=== PATIENT | male | born 1960 | race Caucasian/White ===

== ENCOUNTER 2021-01-09 07:44 | Outpatient (RCR) | payer BC, SELFPAY ==
[2016-01-21 16:52] VITALS: BMI 25.2
[2021-01-09] MEDS: COVID-19 VACC, MRNA(PFIZER)/PF 30 MCG/0.3 ML SYRINGE IM (16:46)
[2021-01-30] MEDS: COVID-19 VACC, MRNA(PFIZER)/PF 30 MCG/0.3 ML SYRINGE IM (16:23)
== END 2021-01-09 23:59 ==
LOC: IMMUN 07:44
PROVIDERS: PCP Family Medicine; Visit Provider Family Medicine
DX: Z23 Encounter for immunization (principal)
CPT/HCPCS: 0001A; 0002A; 91300

== ENCOUNTER 2021-11-28 19:05 | Inpatient (IN) | payer BC, SELFPAY ==
--- NOTE | 2021-11-28 19:09 | EKG12_ITS ---
Test Reason : CP Blood Pressure : / mmHG Vent. Rate : 060 BPM Atrial Rate : 060 BPM P-R Int : 200 ms QRS Dur : 160 ms QT Int : 446 ms P-R-T Axes : 078 -61 028 degrees QTc Int : 446 ms Normal sinus rhythm Right bundle branch block Left anterior fascicular block Bifascicular block Septal infarct , age undetermined Abnormal ECG Confirmed by IRIS CULLEN, MAKAYLA ([id number]), features editor WALT LYLES ([id number]) on 11/30/2021 11:03:50 AM Referred By: MAX Confirmed By:MAKAYLA SIMMONS MD
[2021-11-28 21:59] LABS: D-Dimer Quantitative (DVT/PE) 0.75 FEU/ug/m (0.27-0.49)
--- NOTE | 2021-11-28 22:12 | RAD_ITS ---
STUDY: X-RAY CHEST REASON FOR EXAM: Male, 61 years old. Shortness of breath, chest pain TECHNIQUE: AP portable view of the chest on 2 images. COMPARISON: None. FINDINGS: The lungs are deeply expanded, and there are biapical emphysematous changes with mild basilar crowding, more prominent on the right. Punctate calcified granuloma seen in the lateral right upper lobe; trace curvilinear scarring also seen in the inferior right base. [place] shaped density of trace atelectasis or scarring also seen in the medial left costophrenic sulcus No pneumonic infiltrate. There is no demonstrated pleural abnormality. Normal size heart. Sternal cerclage wires and vascular clips are present from a prior sternotomy and coronary artery bypass graft procedure (CABG). Normal mediastinum and simona. Normal visualized pulmonary arteries. Normal visualized aortic arch and descending thoracic aorta. Normal visualized thoracic spine. Normal visualized ribs, clavicles, and shoulders. [place] soft tissue density with superimposed, mildly eccentric gas lucency overlapping the lower thoracic spine and cardiac silhouette suggests a small to moderate-sized hiatal hernia. RAD/Chest 1 View (Portable) IMPRESSION: 1. Emphysematous changes in the apices, and trace parenchymal scarring in the lung lawrence, as noted. No infiltrate to suggest active pneumonia. 2. Prior median sternotomy and CABG. Heart size and pulmonary vascular pattern within normal limits. 3. Small to moderate size hiatal hernia suggested. Electronically Signed: Michele Rush MD at 21:17 EST ,
--- NOTE | 2021-11-28 22:28 | CT_ITS ---
STUDY: CTA CHEST/THORAX REASON FOR EXAM: Male, 61 years old. ELEVATED D DIMER RADIATION DOSAGE (If Supplied By Facility): CTDIvol = ( 12.46 ) mGy, DLP = ( 469.70 ) mGycm TECHNIQUE: The examination was performed with the intravenous administration of IV 100mL [id number]-370. Post-processing of the angiographic images was performed, with multiplanar reformation and 3D reconstruction. Individualized dose optimization techniques were used for this CT. COMPARISON: AP portable chest x-ray on 2 films 3 hours. FINDINGS: Normal enhancement of the main pulmonary artery and right and left pulmonary arteries. Normal enhancement of the bilateral peripheral pulmonary arteries. There is no demonstrated pulmonary embolism. There are several focal calcifications at the root of the aorta. There is mild atherosclerotic calcification of the aortic arch and descending thoracic aorta. There is no demonstrated aortic dissection. Normal heart size and pericardium. There are calcifications of the coronary arteries. Sternal cerclage wires and vascular clips are present from a prior sternotomy and coronary artery bypass graft procedure (CABG). There are several upper normal size lymph nodes in the aorticopulmonary window and lower mediastinum. There are calcified lymph nodes inferior to the right mainstem bronchus. Normal visualized trachea and bronchi. The lungs are hyper expanded, with flattening of the hemidiaphragms. There are centrilobular and panlobular emphysematous changes in both lung lawrence, most prominent in the apices and inferolateral periphery of the lung bases. There are occasional calcified granulomata in both lungs. Minor curvilinear scarring seen in the anterior lung bases Normal pleura. The thyroid gland is enlarged, extending posteriorly on either side where it abuts the margins of the esophagus that is just left of midline. The lower poles of each lobe and also extend inferiorly to the upper level of the manubrium. There are multilevel mild degenerative changes of thoracic spine. There is central depression of the superior L1 vertebral endplate, likely chronic. There is severe osteoarthritic degenerative narrowing of the right glenohumeral joint space. Incidental note of a moderate size hiatal hernia CT/CTA Chest W/WO Contrast IMPRESSION: 1. No demonstrated pulmonary embolism or arterial dissection. 2. The lungs are hyperinflated with bilateral emphysematous changes. Minor curvilinear scarring in the anterior lung bases. 3. Findings of old calcified granulomatous disease also present. 4. Atherosclerotic vascular calcifications noted. Patient has undergone prior median sternotomy and CABG. Heart size within normal limits. 5. Moderate size hiatal hernia. 6. Enlarged thyroid gland. 7. Mild degenerative changes of the thoracic spine. There is central depression of the superior L1 vertebral endplate, likely chronic. 8. 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 Electronically Signed: Michele Rush MD at 23:25 EST ,
--- NOTE | 2021-11-28 23:05 | EDS_ITS ---
DATE OF SERVICE 11/28/21 CHIEF COMPLAINT: Chest pain. HISTORY OF PRESENT ILLNESS: This patient is a 61-year-old male who presents with chest pain that began today. The patient states that it gradually got worse throughout the day today. The patient states that the pain is constant. The patient states that it is aching. The patient states that it is over his right upper chest. The patient states that nothing makes it worse and nothing makes it better. The patient admits to some shortness of breath that has been getting worse since yesterday. The patient admits to some diaphoresis. The patient also admits to a mild cough. The patient states that he is coughing up some yellow sputum. The patient denies any fever or chills. The patient admits to some mild lightheadedness. The patient denies any heartburn or reflux. The patient denies any palpitations. The patient denies any other cardiac risk factors. The patient denies any recent travel or recent surgery. The patient denies any history of DVT or PE. PAST MEDICAL HISTORY: Prostate cancer. PAST SURGICAL HISTORY: Aortic valve repair and aortic aneurysm repair and herniorrhaphy. FAMILY HISTORY: Denies family history of coronary artery disease. SOCIAL HISTORY: The patient is a smoker of 1 pack of cigarettes per day. The patient denies any alcohol or drug use. REVIEW OF SYSTEMS: GENERAL: The patient denies any fevers or chills. EYES: The patient denies blurry vision or diplopia. ENT: The patient admits to some mild rhinorrhea, but denies any sore throat. CARDIOVASCULAR: The patient admits to some chest pain but denies palpitations. RESPIRATORY: The patient admits to shortness of breath and cough. GI: The patient denies any nausea or vomiting. : The patient denies dysuria or hematuria. MUSCULOSKELETAL: The patient denies any neck pain or back pain. SKIN: The patient denies any rash or boils. NEUROLOGIC: The patient denies any weakness. ALLERGIES: The patient denies hives or swelling. PHYSICAL EXAMINATION: GENERAL: The patient is in no acute distress. VITAL SIGNS: Stable, except for an elevated blood pressure of 187/122. The patient is afebrile. HEENT: Oral mucosa is pink and moist. NECK: Supple. Trachea is midline. There is no JVD. LUNGS: Clear and equal bilaterally. HEART: Regular rate and rhythm. ABDOMEN: Soft, bowel sounds are normal. There is no tenderness. There is no rebound or guarding noted. EXTREMITIES: Intact. There is no calf tenderness or edema. NEUROLOGIC: Cranial nerves II-XII are intact. There are no focal motor or sensory deficits. DIAGNOSTIC DATA: EKG shows normal sinus rhythm with rate of 60. There is a right bundle branch block and a left anterior fascicular block noted. There are no acute ST or T-wave changes. CBC was obtained and was within normal limits. D-dimer was elevated at 0.75. Comprehensive metabolic profile was obtained and was essentially within normal limits. Troponin was ordered and was pending. Repeat 2-hour troponin was ordered and is pending. Portable chest x-ray was obtained, one view, which shows emphysematous changes in the apices. There are other chronic changes. There is no acute infiltrate noted. There is no pneumothorax. Bony thorax is normal. There is no cardiomegaly. Radiology also interpreted the signs and agrees. EMERGENCY DEPARTMENT COURSE AND MEDICAL DECISION MAKING: The patient was given aspirin and sublingual nitroglycerin here. The patient is feeling better on reevaluation. IMPRESSION: Dyspnea. Chest pain. DISPOSITION/PLAN: Because of the elevated D-dimer CTA was ordered and is pending. The patient has a HEART score so far as 4. The patient will likely need to be admitted for further cardiac workup. Disposition is pending. Care of the patient is turned over to the oncoming physician.
[2021-11-28 23:27] LABS: ALB/GLOB Ratio 0.7 RATIO (0.9-2.4); AST(SGOT) 20 U/L (15-37); Alanine Aminotransfer ALT/SGPT 22 U/L (16-61); Albumin, Serum 2.8 g/dL (3.2-5.0); Alkaline Phosphatase 96 U/L (45-117); Anion Gap 3 (5-15); BUN 22 mg/dL (7-18); BUN/Creat Ratio 30.6 RATIO (10-20); Calcium,Total 8.8 mg/dL (8.5-10.1); Chloride 111 mmol/L (98-107); Creatinine, Serum 0.72 mg/dL (0.70-1.30); EST Glomerular Filtration Rate 118 mL/min (>60); Est Glom Filt Rate - Afr Amer 142 mL/min (>60); Globulin 3.8 g/dL (2.2-4.2); Glucose 106 mg/dL (74-106); Potassium 3.9 mmol/L (3.5-5.1); Protein, Total 6.6 g/dL (6.4-8.2); Sodium Level 140 mmol/L (136-145); Troponin-I HS 10 pg/mL (3.0-78.0)
--- NOTE | 2021-11-28 23:59 | EDS_ITS ---
DATE OF SERVICE 11/28/21 ADDENDUM: The patient was signed out to me by Dr. Butt while awaiting the troponin and CTA results. The patient's initial troponin was 10. His Delta was 11. His CTA showed chronic changes consistent with postoperative CABG as well as emphysematous/COPD changes, but otherwise no acute findings. I reevaluated the patient and he is resting comfortably on a couple liters of nasal cannula oxygen. When he is ambulated, his respiratory rate goes from 20 to 35. He did not desaturate when I had him ambulate, but reported that just prior to this, his pulse ox went down to 70% when he stood up to use the urinal. At this time, as the patient is requiring supplemental oxygen, and is having dyspnea with minimal exertion, he will be kept in the hospital for COPD exacerbation for continued evaluation. IMPRESSION: Chronic obstructive pulmonary disease exacerbation. DISPOSITION/PLAN: Admission.
[2021-11-29] VITALS (16 sets, daily range): BP systolic 118–165; BP diastolic 74–94; PULSE 56–87; RESP 18–22; TEMP 36.5–36.7; O2SAT 92–98; BMI 23.5
--- NOTE | 2021-11-29 01:11 | HP.PCM_ITS ---
Documented by User: ESTEFANY Newman 11/29/21 01:32 HPI - General General Date of Admission: 11/29/21 Date of Service: 11/29/21 Chief Complaint: Shortness of breath, cough HPI Narrative ROBBY BENNETT, is a 61 M who presents with complaints of shortness of breath and cough. Patient reports that he has been ill with a cough and shortness of breath for 3 weeks and has been on antibiotics and steroids as an outpatient however patient continues to have shortness of breath and cough. Patient was noted to have an elevated D-dimer upon evaluation in ER however CTA is negative for PE. Patient reports a medical history that includes COPD, hypertension, hyperlipidemia. PFSH Medical History CAD (coronary artery disease) COPD (chronic obstructive pulmonary disease) History of prostate cancer HLD (hyperlipidemia) HTN (hypertension) Thoracic aortic aneurysm Tobacco use Home Medications albuterol sulfate 2 puff INHALATION Q4H PRN PRN 11/29/21 [History Last Taken Unknown] aspirin 81 mg PO DAILY 11/29/21 [History Last Taken Unknown] atorvastatin [Lipitor] 20 mg PO QHS 11/29/21 [History Last Taken Unknown] bupropion HCl 150 mg PO BID 11/29/21 [History Last Taken Unknown] carvedilol [Coreg] 3.25 mg PO BID 11/29/21 [History Last Taken Unknown] lisinopril 5 mg PO DAILY 11/29/21 [History Last Taken Unknown] tiotropium bromide [Spiriva with HandiHaler] cap INHALATION DAILY 11/29/21 [History Last Taken Unknown] Allergy/AdvReac Type Severity Reaction Status Date / Time acetaminophen [From Vicodin] AdvReac Other Verified 01/21/16 16:59 hydrocodone bitartrate AdvReac Other Verified 01/21/16 16:59 [From Vicodin] Family History Father Prostate cancer Dementia Mother CHF (congestive heart failure) Diabetes Heart disease Surgical History S/P insertion of endovascular thoracic aortic stent graft S/P prostatectomy Social History household members: spouse Smoking Status: Current every day smoker tobacco type: cigarettes Smoking packs per day: 1 Smoking cigarettes per day: 20.0 Years smoked: 45 Smoking pack-years: 45.00 alcohol intake: current alcohol intake frequency: holidays/special occasions only substance use type: does not use ROS Constitutional Constitutional: Denies anorexia, chills, fatigue, fever(s), malaise or weakness Cardiovascular Cardiovascular: Denies chest pain, edema, palpitations or syncope Respiratory/Chest Respiratory/Chest: Reports cough, productive cough, shortness of breath at rest, shortness of breath with exertion, tachypnea and wheezing Gastrointestinal Gastrointestinal: Denies abdominal pain, constipation, diarrhea, nausea or vomiting Genitourinary Genitourinary: Denies dysuria Musculoskeletal Musculoskeletal: Denies back pain, extremity pain, joint pain or joint stiffness Integumentary Integumentary: Denies dry skin Neurologic Neurologic: Denies abnormal gait, abnormal speech, confusion or dizziness Psychiatric Psychiatric: Denies anxiety or depression Endocrine Endocrinology: Denies change in body appearance Hematologic/Lymphatic Hematologic/Lymphatic: Denies anemia Physical Exam Const alert, oriented x3 and no apparent distress General Appearance: cooperative HEENT normocephalic and head/scalp atraumatic Eyes conjunctivae normal and no scleral icterus Neck no lymphadenopathy and supple General: trachea midline Resp normal respiratory effort and normal air movement Effort and Inspection: able to speak in complete sentences, symmetric chest movement and tachypneic Auscultation: diminished lung sounds Cardio regular rate, regular rhythm and peripheral pulses 2+ throughout GI normal to inspection, nondistended, normoactive bowel sounds, soft to palpation and non-tender Extremity normal capillary refill and no clubbing, cyanosis or edema General Extremity: no tenderness to palpation of joints or extremities Skin General Skin Exam: no breakdown and turgor normal Lesions: no lesions Rashes: no rashes Neuro no focal motor deficits and no sensory deficits noted Speech: speech normal Motor Exam: Negative for general weakness Psych thought process normal, cooperative and affect normal Appearance: appropriate Results Lab / Micro Data Result Diagrams: 11/28/21 19:15 11/28/21 21:00 Labs: Laboratory Results - last 24 hr 11/28/21 19:15: Sodium Cancelled, Potassium Cancelled, Chloride Cancelled, Carbon Dioxide Cancelled, Anion Gap Cancelled, BUN Cancelled, Creatinine Cancelled, Estim Creat Clear Calc Cancelled, Est GFR (MDRD) Af Amer Cancelled, Est GFR (MDRD) Non-Af Cancelled, BUN/Creatinine Ratio Cancelled, Glucose Cancelled, Calcium Cancelled, Total Bilirubin Cancelled, AST Cancelled, ALT Cancelled, Alkaline Phosphatase Cancelled, Troponin I High Sens Cancelled, Total Protein Cancelled, Albumin Cancelled, Globulin Cancelled, Albumin/Globulin Ratio Cancelled 11/28/21 19:15: D-Dimer Quant (PE/DVT) Cancelled 11/28/21 21:00: D-Dimer Quant (PE/DVT) 0.75 H* 11/28/21 21:00: Sodium 140, Potassium 3.9, Chloride 111 H, Carbon Dioxide 26.0, Anion Gap 3 L, BUN 22 H, Creatinine 0.72, Est GFR (MDRD) Af Amer 142, Est GFR ( MDRD) Non-Af 118, BUN/Creatinine Ratio 30.6 H, Glucose 106, Calcium 8.8, Total Bilirubin 0.10 L, AST 20, ALT 22, Alkaline Phosphatase 96, Troponin I High Sens 10, Total Protein 6.6, Albumin 2.8 L, Globulin 3.8, Albumin/Globulin Ratio 0.7 L Radiology Impression Chest X-Ray 11/28/21 22:12 IMPRESSION: 1. Emphysematous changes in the apices, and trace parenchymal scarring in the lung lawrence, as noted. No infiltrate to suggest active pneumonia. 2. Prior median sternotomy and CABG. Heart size and pulmonary vascular pattern within normal limits. 3. Small to moderate size hiatal hernia suggested. Electronically Signed: Michele Rush MD at 21:17 EST , Chest CTA 11/28/21 22:28 IMPRESSION: 1. No demonstrated pulmonary embolism or arterial dissection. 2. The lungs are hyperinflated with bilateral emphysematous changes. Minor curvilinear scarring in the anterior lung bases. 3. Findings of old calcified granulomatous disease also present. 4. Atherosclerotic vascular calcifications noted. Patient has undergone prior median sternotomy and CABG. Heart size within normal limits. 5. Moderate size hiatal hernia. 6. Enlarged thyroid gland. 7. Mild degenerative changes of the thoracic spine. There is central depression of the superior L1 vertebral endplate, likely chronic. 8. 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 Electronically Signed: Michele Rush MD at 23:25 EST , Assessment & Plan Assessment/Plan (1) Acute exacerbation of chronic obstructive pulmonary disease (COPD): (2) Elevated d-dimer: PLAN: 1. Acute exacerbation COPD -Admit to PCU -Oxygen therapy per protocol, currently on 2 L -Sputum culture ordered -Encourage incentive spirometry -CBC and CMP ordered daily -COVID-19 rapid antigen ordered, fully vaccinated and history received -Procalcitonin ordered -Scheduled duo nebs with as needed albuterol nebulizer treatments ordered -Patient initiated on IV methylprednisolone -Trend cardiac enzymes secondary to complaints of chest pressure with shortness of breath 2. Elevated D-dimer -CTA negative for PE 3. Hypertension -Continue carvedilol and lisinopril -Vital signs per protocol, currently hypertensive -As needed IV hydralazine ordered -Cardiac diet 4. Hyperlipidemia -Continue atorvastatin 5. Tobacco abuse -Patient currently smokes 1 pack/day -Smoking cessation and lifestyle modification encouraged -Inpatient smoking cessation consult placed DVT prophylaxis-subcu Lovenox This patient was seen by LUCY NewmanC under the supervision of Dr. Duque. 28 minutes spent in clinical coordination of patient's plan of care. Documented by User: Dr. Kori Duque MD 11/29/21 01:33 PFSH Medical History CAD (coronary artery disease) COPD (chronic obstructive pulmonary disease) History of prostate cancer HLD (hyperlipidemia) HTN (hypertension) Thoracic aortic aneurysm Tobacco use Home Medications albuterol sulfate 2 puff INHALATION Q4H PRN PRN 11/29/21 [History Last Taken Unknown] aspirin 81 mg PO DAILY 11/29/21 [History Last Taken Unknown] atorvastatin [Lipitor] 20 mg PO QHS 11/29/21 [History Last Taken Unknown] bupropion HCl 150 mg PO BID 11/29/21 [History Last Taken Unknown] carvedilol [Coreg] 3.25 mg PO BID 11/29/21 [History Last Taken Unknown] lisinopril 5 mg PO DAILY 11/29/21 [History Last Taken Unknown] tiotropium bromide [Spiriva with HandiHaler] cap INHALATION DAILY 11/29/21 [History Last Taken Unknown] Allergy/AdvReac Type Severity Reaction Status Date / Time acetaminophen [From Vicodin] AdvReac Other Verified 01/21/16 16:59 hydrocodone bitartrate AdvReac Other Verified 01/21/16 16:59 [From Vicodin] Family History Father Prostate cancer Dementia Mother CHF (congestive heart failure) Diabetes Heart disease Surgical History S/P insertion of endovascular thoracic aortic stent graft S/P prostatectomy Social History household members: spouse Smoking Status: Current every day smoker tobacco type: cigarettes Smoking packs per day: 1 Smoking cigarettes per day: 20.0 Years smoked: 45 Smoking pack-years: 45.00 alcohol intake: current alcohol intake frequency: holidays/special occasions only substance use type: does not use Results Lab / Micro Data Result Diagrams: 11/28/21 19:15 11/28/21 21:00
[2021-11-29] MEDS: hydrALAZINE 20 MG/ML Vial 10 MG IV (02:29)
[2021-11-29 03:16] LABS: Absolute Lymphocyte Count 0.83 X10^3/uL (0.83-4.51); Absolute Neutrophil Count 10.5 X10^3/uL (2.0-7.7); Basophil% 0.8 % (0-1); Eosinophil# 0.46 X10^3/uL; Eosinophils% 3.8 % (0-5); Hematocrit 37.1 % (40-54); Hemoglobin 11.9 g/dL (13.0-16.5); Lymphocyte # 0.83 X10^3/ul (0.83-4.51); Lymphocyte % 6.9 % (19-41); Mean Corp Hgb Conc 32.1 g/dL (32-36); Mean Corpuscular Hgb 26.2 pg (27.0-32.0); Mean Corpuscular Volume 81.7 fL (80-94); Mean Platelet Vol. 9.1 fl (6.2-12.0); Monocyte# 0.22 X10^3/uL; Monocyte% 1.8 % (0-10); NRBC Flagged by Analyzer 0 % (0-5); Neutrophil # 10.45 X10^3/uL (2.7-7.7); Neutrophil % 86.5 % (47-70); Platelet Count 392 K/mm3 (150-450); RBC Distribution Width CV 18.2 % (11.6-14.6); RBC Distribution Width SD 54.4 fl (35.1-43.9); Red Blood Count 4.54 M/mm3 (4.6-6.2); White Blood Count 12.1 K/mm3 (4.4-11.0)
[2021-11-29 03:53] LABS: ALB/GLOB Ratio 0.8 RATIO (0.9-2.4); AST(SGOT) 16 U/L (15-37); Alanine Aminotransfer ALT/SGPT 21 U/L (16-61); Albumin, Serum 3.1 g/dL (3.2-5.0); Alkaline Phosphatase 90 U/L (45-117); Anion Gap 6 (5-15); BUN 22 mg/dL (7-18); BUN/Creat Ratio 31.3 RATIO (10-20); Calcium,Total 8.9 mg/dL (8.5-10.1); Chloride 110 mmol/L (98-107); EST Glomerular Filtration Rate 120 mL/min (>60); Est Glom Filt Rate - Afr Amer 146 mL/min (>60); Estimated Creatinine Clearance 125.58 ml/min; Globulin 3.8 g/dL (2.2-4.2); Glucose 114 mg/dL (74-106); Protein, Total 6.9 g/dL (6.4-8.2); Sodium Level 139 mmol/L (136-145); Troponin-I HS 7 pg/mL (3.0-78.0)
[2021-11-29 05:30] LABS: Procalcitonin < 0.04 ng/mL (0.00-0.09)
[2021-11-29] MEDS: 0.9% Saline Lock 10 ML Syringe IV ×3 (06:10→21:23)
[2021-11-29] MEDS: Ipratropium/Albuterol Sulfate 3 ML AMPUL.NEB INHALATION ×4 (07:10→19:59)
--- NOTE | 2021-11-29 07:36 | CPS ---
started by nursing
[2021-11-29] MEDS: Lisinopril 5 MG Tablet PO (08:34)
[2021-11-29] MEDS: Carvedilol 3.125 MG TABLET PO ×2 (08:34→21:22)
[2021-11-29] MEDS: Enoxaparin 40 MG/0.4 ML Syringe SC (08:34)
[2021-11-29] MEDS: Aspirin 81 MG TAB.CHEW PO (08:35)
[2021-11-29 08:45] LABS: Absolute Lymphocyte Count 2.19 X10^3/uL (0.83-4.51); Absolute Neutrophil Count 6.6 X10^3/uL (2.0-7.7); Basophil# 0.14 X10^3/uL; Basophil% 1.3 % (0-1); Eosinophil# 0.95 X10^3/uL; Eosinophils% 8.8 % (0-5); Lymphocyte # 2.19 X10^3/ul (0.83-4.51); Lymphocyte % 20.4 % (19-41); Mean Corp Hgb Conc 31.7 g/dL (32-36); Mean Corpuscular Hgb 26.2 pg (27.0-32.0); Mean Corpuscular Volume 82.5 fL (80-94); Mean Platelet Vol. 9.9 fl (6.2-12.0); Monocyte# 0.85 X10^3/uL; Monocyte% 7.9 % (0-10); NRBC Flagged by Analyzer 0 % (0-5); Neutrophil # 6.58 X10^3/uL (2.7-7.7); Neutrophil % 61.3 % (47-70); Platelet Count 475 K/mm3 (150-450); RBC Distribution Width CV 18.5 % (11.6-14.6); RBC Distribution Width SD 54.9 fl (35.1-43.9); Red Blood Count 4.97 M/mm3 (4.6-6.2); White Blood Count 10.7 K/mm3 (4.4-11.0)
[2021-11-29 11:53] LABS: Troponin-I HS 11 pg/mL (3.0-78.0)
--- NOTE | 2021-11-29 13:33 | PN.HOSP_ITS ---
Subjective Subjective Patient seen and examined. He has been managed for acute COPD exacerbation. He feels his breathing is improving. Patient states he still smokes. He denies any nausea, vomiting, fever or chills. Review of systems otherwise negative. Objective Data Objective Data Vital Signs: Vital Signs Temp Pulse Resp BP Pulse Ox 97.9 F 87 21 H 127/74 H 92 11/29/21 08:21 11/29/21 11:33 11/29/21 10:55 11/29/21 08:21 11/29/21 11:33 Oxygen Flow Rate (L/min) 2 Oxygen Delivery Method Nasal Cannula Weight: 183 lb 3.266 oz Body Mass Index (BMI) 23.5 Lab / Micro Data Result Diagrams: 11/29/21 03:00 11/29/21 03:00 Labs: Laboratory Results - last 24 hr 11/28/21 19:15: Sodium Cancelled, Potassium Cancelled, Chloride Cancelled, Carbon Dioxide Cancelled, Anion Gap Cancelled, BUN Cancelled, Creatinine Cancelled, Estim Creat Clear Calc Cancelled, Est GFR (MDRD) Af Amer Cancelled, Est GFR (MDRD) Non-Af Cancelled, BUN/Creatinine Ratio Cancelled, Glucose Cancelled, Calcium Cancelled, Total Bilirubin Cancelled, AST Cancelled, ALT Cancelled, Alkaline Phosphatase Cancelled, Troponin I High Sens Cancelled, Total Protein Cancelled, Albumin Cancelled, Globulin Cancelled, Albumin/Globulin Ratio Cancelled 11/28/21 19:15: WBC 10.7, RBC 4.97, Hgb 13.0, Hct 41.0, MCV 82.5, MCH 26.2 L, MCHC 31.7 L, RDW Std Deviation 54.9 H, RDW Coeff of Diallo 18.5 H, Plt Count 475 H, MPV 9.9, Immature Gran % (Auto) 0.300, Neut % (Auto) 61.3, Lymph % (Auto) 20.4, [place] % (Auto) 7.9, Eos % (Auto) 8.8 H, Baso % (Auto) 1.3 H, Absolute Neuts (auto) 6.6, Absolute Lymphs (auto) 2.19, Nucleated RBC % 0 11/28/21 19:15: D-Dimer Quant (PE/DVT) Cancelled 11/28/21 21:00: D-Dimer Quant (PE/DVT) 0.75 H* 11/28/21 21:00: Sodium 140, Potassium 3.9, Chloride 111 H, Carbon Dioxide 26.0, Anion Gap 3 L, BUN 22 H, Creatinine 0.72, Est GFR (MDRD) Af Amer 142, Est GFR (MDRD) Non-Af 118, BUN/Creatinine Ratio 30.6 H, Glucose 106, Calcium 8.8, Total Bilirubin 0.10 L, AST 20, ALT 22, Alkaline Phosphatase 96, Troponin I High Sens 10, Total Protein 6.6, Albumin 2.8 L, Globulin 3.8, Albumin/Globulin Ratio 0.7 L 11/28/21 23:00: Troponin I High Sens 11 11/29/21 03:00: Procalcitonin < 0.04 11/29/21 03:00: WBC 12.1 H, RBC 4.54 L, Hgb 11.9 L, Hct 37.1 L, MCV 81.7, MCH 26.2 L, MCHC 32.1, RDW Std Deviation 54.4 H, RDW Coeff of Diallo 18.2 H, Plt Count 392, MPV 9.1, Immature Gran % (Auto) 0.200, Neut % (Auto) 86.5 H, Lymph % (Auto) 6.9 L, [place] % (Auto) 1.8, Eos % (Auto) 3.8, Baso % (Auto) 0.8, Absolute Neuts (auto) 10.5 H, Absolute Lymphs (auto) 0.83, Nucleated RBC % 0 11/29/21 03:00: Sodium 139, Potassium 4.0, Chloride 110 H, Carbon Dioxide 23.0, Anion Gap 6, BUN 22 H, Creatinine 0.70, Estim Creat Clear Calc 125.58, Est GFR (MDRD) Af Amer 146, Est GFR (MDRD) Non-Af 120, BUN/Creatinine Ratio 31.3 H, Glucose 114 H, Calcium 8.9, Total Bilirubin 0.20, AST 16, ALT 21, Alkaline Phosp hatase 90, Troponin I High Sens 7, Total Protein 6.9, Albumin 3.1 L, Globulin 3.8, Albumin/Globulin Ratio 0.8 L Micro: Microbiology 11/29/21 02:15 Nasal Secretion SARS-CoV-2 Antigen (Rapid) - Final Radiography Diagnostic Testing: Radiology Impression Chest X-Ray 11/28/21 22:12 IMPRESSION: 1. Emphysematous changes in the apices, and trace parenchymal scarring in the lung lawrence, as noted. No infiltrate to suggest active pneumonia. 2. Prior median sternotomy and CABG. Heart size and pulmonary vascular pattern within normal limits. 3. Small to moderate size hiatal hernia suggested. Electronically Signed: Michele Rush MD at 21:17 EST , Chest CTA 11/28/21 22:28 IMPRESSION: 1. No demonstrated pulmonary embolism or arterial dissection. 2. The lungs are hyperinflated with bilateral emphysematous changes. Minor curvilinear scarring in the anterior lung bases. 3. Findings of old calcified granulomatous disease also present. 4. Atherosclerotic vascular calcifications noted. Patient has undergone prior median sternotomy and CABG. Heart size within normal limits. 5. Moderate size hiatal hernia. 6. Enlarged thyroid gland. 7. Mild degenerative changes of the thoracic spine. There is central depression of the superior L1 vertebral endplate, likely chronic. 8. 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 Electronically Signed: Michele Rush MD at 23:25 EST , Physical Exam Const alert, oriented x3 and no apparent distress Exam Limitations: no limitations HEENT head/scalp atraumatic Head and Scalp: normocephalic Mouth: dry mucous membranes Eyes EOMs intact bilaterally and conjunctivae normal Neck no lymphadenopathy Resp Resp Narrative: Mildly diminished breath sounds bibasilarly. No wheezes or crackles. On 2 L of oxygen. Cardio regular rate, regular rhythm, S1 normal heart sound, S2 normal heart sound and no murmurs GI normal to inspection, nondistended, normoactive bowel sounds, soft to palpation, non-tender and non-distended Extremity normal to inspection, full ROM and no clubbing, cyanosis or edema Peripheral Pulses: Yes pulses 2+ throughout Skin no rashes or lesions noted Neuro oriented x3, CN's II-XII intact bilaterally, moves all extremities and no focal motor deficits Sensorium / Orientation: awake and alert Psych affect normal Assessment & Plan Assessment/Plan (1) Acute exacerbation of chronic obstructive pulmonary disease (COPD): (2) Elevated d-dimer: PLAN: #Acute COPD exacerbation * Currently on 2 L of oxygen. On IV Solu-Medrol. * Breathing treatments with bronchodilators. Titrate oxygen to maintain saturation above 90%. * counseled to quit smoking * #Elevated D-dimer: D-dimer was 0.75. CTA of the chest done was negative for any evidence of PE #CAD: On aspirin, statin, Coreg and lisinopril #History of aortic aneurysm status post recent grafting on 03/19/2021. * On aspirin and statin as well as Coreg lisinopril #Hypertension: On lisinopril and Coreg #Anemia: On statin #Thyromegaly: This was a seen on CT a of the chest rule out PE. Will check thyroid function panel #Nicotine dependence: still smokes about a pack a day. counseled to quit. DVT prophylaxis: Lovenox Charges/Coding Visit Charges Inpatient E&M: 04022 Subs Hosp L2
--- NOTE | 2021-11-29 13:59 | CASEMGMT ---
RN CM Assessment Introduced role of RN CM to patient and Jacqui at bedside. Patient is alert, oriented and able to participate in RN CM Assessment. Care providers, pharmacy, and demographics verified. Admit Dx: COPD Exacerbation Re-Admit: No Barriers/Issues: None PCP: Chad Hennessy Specialists: Cardio Preferred [facility]acy: [facility] Insurance: Drain Rx Benefit: Yes LNOK: Jacqui Roberts LW/HPOA: None. Information with SW rack card provided and aware to notify staff if wanting to complete on this admission. Aware can return as an outpatient to complete at a later time. Living Arrangements: Lives with in a 2SH. Bedroom on [facility] w/approx 12-15steps. 3 steps to enter home. ADL?s: Independent with ambulation and ADLs Transportation: Both patient and drive DME: None HHC: None SNF: None Goal: Home and does not think will have any needs. In network DME list provided and should Home O2 be required, 1st preference [employer] and 2nd preference [employer]. DC PLAN: Home with possible Home O2. Mitul Patel RNCM
[2021-11-29 18:49] LABS: T4 Free Direct 0.73 ng/dL (0.76-1.46)
[2021-11-29] MEDS: Atorvastatin Calcium 20 MG Tablet PO (21:22)
[2021-11-29] MEDS: MELATONIN 3 MG TABLET PO (21:22)
[2021-11-30] VITALS (9 sets, daily range): BP systolic 129–154; BP diastolic 87–94; PULSE 56–79; RESP 16–18; TEMP 36.5–36.8; O2SAT 87–98
[2021-11-30] MEDS: Mag Hydrox/Al Hydrox/Simeth 30 ML UDC PO (02:27)
[2021-11-30] MEDS: 0.9% Saline Lock 10 ML Syringe IV (05:37)
--- NOTE | 2021-11-30 05:55 | US_ITS ---
STUDY: THYROID ULTRASOUND REASON FOR EXAM: Male, 61 years old. Thyromegaly seen on 11/28/21 CT TECHNIQUE: Ultrasound evaluation of the thyroid was performed with real-time and static alcala-scale imaging. COMPARISON: Comparison is made with prior CT scan of the thorax dated 11/28/2021. FINDINGS: RIGHT LOBE: The right lobe of the thyroid gland is enlarged and measures 6 cm x 3.6 cm x 4.3 cm. There is a heterogeneous echotexture. Multiple solid nodules are seen. The largest in the right lobe measures 1.8 cm x 1.8 cm x 1.8 cm. A biopsy is recommended. LEFT LOBE: The left lobe of the thyroid gland is enlarged and measures 5.7 cm x 3.4 cm x 2.8 cm. There is a heterogeneous echotexture. 2 solid nodules are seen. The larger measures 1.3 cm x 0.9 cm x 0.6 cm. In 0.4 mm calcification is seen in the left lobe. ISTHMUS: The isthmus measures 11 mm. The regional lymph nodes are normal. US/Thyroid IMPRESSION: Heterogeneous enlargement of both lobes of the thyroid with bilateral solid masses more pronounced on the right side. Biopsy of the 1.8 cm x 1.8 cm x 1.8 cm irregular solid nodule in the right lobe is recommended. Electronically Signed: Dontae Dalton MD at 10:46 EST ,
[2021-11-30 06:26] LABS: Absolute Lymphocyte Count 0.85 X10^3/uL (0.83-4.51); Absolute Neutrophil Count 17.6 X10^3/uL (2.0-7.7); Basophil# 0.02 X10^3/uL; Basophil% 0.1 % (0-1); Hematocrit 35.8 % (40-54); Hemoglobin 11.1 g/dL (13.0-16.5); Lymphocyte # 0.85 X10^3/ul (0.83-4.51); Lymphocyte % 4.4 % (19-41); Mean Corpuscular Hgb 25.7 pg (27.0-32.0); Mean Corpuscular Volume 82.9 fL (80-94); Mean Platelet Vol. 9.3 fl (6.2-12.0); Monocyte# 0.72 X10^3/uL; Monocyte% 3.7 % (0-10); NRBC Flagged by Analyzer 0 % (0-5); Neutrophil # 17.55 X10^3/uL (2.7-7.7); Neutrophil % 91.1 % (47-70); Platelet Count 390 K/mm3 (150-450); RBC Distribution Width CV 18.4 % (11.6-14.6); RBC Distribution Width SD 55.4 fl (35.1-43.9); Red Blood Count 4.32 M/mm3 (4.6-6.2); White Blood Count 19.3 K/mm3 (4.4-11.0)
[2021-11-30 06:39] LABS: Anion Gap 4 (5-15); BUN 26 mg/dL (7-18); BUN/Creat Ratio 32.2 RATIO (10-20); Chloride 109 mmol/L (98-107); Creatinine, Serum 0.81 mg/dL (0.70-1.30); EST Glomerular Filtration Rate 103 mL/min (>60); Est Glom Filt Rate - Afr Amer 124 mL/min (>60); Estimated Creatinine Clearance 108.53 ml/min; Glucose 148 mg/dL (74-106); Potassium 4.4 mmol/L (3.5-5.1); Sodium Level 138 mmol/L (136-145)
[2021-11-30] MEDS: Ipratropium/Albuterol Sulfate 3 ML AMPUL.NEB INHALATION ×2 (07:09→11:01)
[2021-11-30] MEDS: Aspirin 81 MG TAB.CHEW PO (08:20)
[2021-11-30] MEDS: Lisinopril 5 MG Tablet PO (08:20)
[2021-11-30] MEDS: Enoxaparin 40 MG/0.4 ML Syringe SC (08:21)
[2021-11-30] MEDS: Carvedilol 3.125 MG TABLET PO (08:21)
--- NOTE | 2021-11-30 10:15 | CASEMGMT ---
Addendum entered by Shellie King 11/30/21 11:56: Faxed referral for O2 to [facility], email to Evangelina regarding referral and that portable tank was taken from stock. Original Note: JESSICA CM in to pt room, pt sitting on edge of bed. Discussed with pt oxygen process, pt verbalizes understanding. He states he is going to buy a pulse ox when he picks up his rx. Pt denies need for HHC. Pt denies further needs.
--- NOTE | 2021-11-30 10:22 | CASEMGMT ---
Pt screened with [facility] Palliative Care screening tool due to COPD exac, pt met criteria. No order received at this time.
--- NOTE | 2021-11-30 11:38 | PCM.DC.SUM ---
Providers Date of Admission: 11/29/21 Primary Care Physician: Dr. Chad Hennessy MD Reason For Visit: COPD EXACERBATION Diagnosis Discharge Diagnosis (1) Acute exacerbation of chronic obstructive pulmonary disease (COPD): Status: Chronic Code(s): J44.1 - Chronic obstructive pulmonary disease with (acute) exacerbation (2) Elevated d-dimer: Status: Acute Code(s): R79.89 - Other specified abnormal findings of blood chemistry Medications at Discharge Home Medications Spiriva with HandiHaler 18 mcg INHALATION DAILY 11/29/21 albuterol sulfate 2 puff INHALATION Q4H PRN PRN 11/29/21 aspirin 81 mg PO DAILY 11/29/21 atorvastatin [Lipitor] 20 mg PO QHS 11/29/21 carvedilol [Coreg] 3.25 mg PO BID 11/29/21 lisinopril 5 mg PO DAILY 11/29/21 albuterol sulfate 1 inh INHALATION Q6H PRN #6.7 g 11/30/21 levofloxacin 750 mg PO Q24H #7 tab 11/30/21 levothyroxine [Synthroid] 50 mcg PO DAILY #30 tab 11/30/21 nicotine 21 mg TRANSDERMAL DAILY #7 ea 11/30/21 prednisone 10 mg PO DAILY #40 tab 11/30/21 Hospital Course Operations None Procedures None Summary of Care Provided Minutes Spent on Discharge: 36 Hospital Course: Mr. Roberts is a 61-year-old white male who presented to the emergency department was [facility] on 11/28/2021 with a chief complaint of shortness of breath. He reported history of upper respiratory infection that has been problematic for approximately 3 weeks prior to presentation and had been given Augmentin and prednisone therapy as an outpatient. Upon presentation he had more pronounced dyspnea, wheezing, and chest tightness and objectively had an increased work of breathing. The patient did admit on admission over the last 48 hours he had painted several hours a day and had been exposed to chemicals with at which she was not normally exposed. Respirators were not worn. In the emergency department his D-dimer was mildly elevated and therefore a CTA of his chest was performed. He had mild white count elevation on his CBC without marked left shift and his BMP was negative. A high-sensitivity troponin was obtained on admission given his shortness of breath and it was 10 which is well within normal range. His chest x-ray shows previous sternotomy and evidence of CABG with a small to moderate size hiatal hernia and evidence of parenchymal scarring and emphysematous changes at the apices. As noted above a CTA of his chest was performed and showed no evidence of PE or dissection but did show hyperinflated lungs with bilateral emphysematous changes throughout the lung lawrence, worse at the apices, and scarring in the anterior lung bases with old calcified granulomatous disease, atherosclerotic calcifications, a moderate hiatal hernia and an enlarged thyroid gland. He was admitted to the medical floor and treated with IV Solu-Medrol, [id number] duo nebs with as needed albuterol and given the thyroid enlargement on his CTA a thyroid ultrasound was obtained. He had significant improvement in his respiratory status by 11/30/2021 and required no oxygen with ambulation and 2 L with exertion to maintain sats greater than 88%. Upon my discussion with him he is still smoking and had experienced a change in his sputum production prior to presentation and given that he was initiated on oral antibiotics at discharge. He is never followed with a infectious waste technician before. I did discuss that this was recommended at this point given the severity of his lung disease especially with the marked abnormalities noted on CT of his chest. His CT was reviewed with him prior to discharge. Also the ultrasound of his thyroid noted heterogeneous enlargement of both lobes of the thyroid with bilateral solid masses more pronounced on the right and biopsy was recommended of the right lobe. The case was discussed with Dr. Cabral and he states that he can perform this as an outpatient and therefore referral was made at discharge. A TSH was obtained and found to be 26.10 with a free T4 of 0.73. And therefore levothyroxine was ordered at 50 mcg. I would recommend follow-up TSH be performed in 6 weeks. The level was too high to be euthyroid sick. Upon discharge she was given a prescription for levothyroxine as noted above, a prednisone taper, levofloxacin for 7-day course, and nicotine patch at 21 mcg for 7 days, and a refill of his albuterol HFA. He was instructed to follow-up with his PCP as scheduled, which is within the next week, pulmonology as his PCP is able to refer, and Dr. Cabral from general surgery for thyroid biopsy. I would also recommend outpatient PFTs be obtained. Discharge diagnoses: Acute hypoxic respiratory failure Acute COPD exacerbation Elevated TSH Thyroid nodules--> solid needing biopsy D-dimer elevation Leukocytosis secondary to demargination with steroids Normocytic anemia Hypertension CAD Hyperlipidemia Tobacco abuse Physical Exam Const alert, oriented x3 and no apparent distress Constitutional Narrative: Upper middle-aged white male sitting up in bed watching television currently on 2 L nasal cannula with oxygen saturations at 96-97%, appears comfortable and nontoxic General Appearance: cooperative, comfortable, well kempt and well developed Orientation / Consciousness: awake Exam Limitations: no limitations HEENT normocephalic, head/scalp atraumatic, hearing grossly normal bilaterally and moist oral mucous membranes HEENT Narrative: Dentition is fair, Mallampati is 2, no thrush Eyes PERRL, EOMs intact bilaterally and conjunctivae normal Eyes Narrative: No scleral icterus Neck no lymphadenopathy, supple and no JVD Neck Narrative: Trachea midline, no significant thyroid enlargement or nodules able to be palpated Resp normal respiratory effort, no retractions, no use of accessory muscles and clear to auscultation bilaterally Resp Narrative: Markedly diffusely diminished but no adventitious sounds Auscultation: Negative for crackles, rales, rhonchi or wheezes Cardio regular rate, regular rhythm, S1 normal heart sound, S2 normal heart sound, no murmurs, no rub, no gallops, no clicks and no JVD GI normal to inspection, nondistended, normoactive bowel sounds, soft to palpation, non-tender and non-distended Extremity normal to inspection and no clubbing, cyanosis or edema Skin no rashes or lesions noted, no wounds, skin turgor normal and no jaundice Neuro oriented x3, CN's II-XII intact bilaterally, moves all extremities and no focal motor deficits Sensorium / Orientation: awake and alert Speech: speech normal Motor Exam: strength 5/5 throughout Psych affect normal Psych Narrative: Very pleasant Weight / BMI Weight Weight: 83.642 kg Body Mass Index (BMI) 23.5 ABG / Lab / Microbiology Data Result Diagrams: 11/30/21 05:33 11/30/21 05:33 Laboratory: Laboratory Results - last 24 hr 11/28/21 23:00: Troponin I High Sens 11 11/29/21 03:00: TSH 26.10 H 11/29/21 03:00: Free T4 0.73 L 11/30/21 05:33: WBC 19.3 H, RBC 4.32 L, Hgb 11.1 L, Hct 35.8 L, MCV 82.9, MCH 25.7 L, MCHC 31.0 L, RDW Std Deviation 55.4 H, RDW Coeff of Diallo 18.4 H, Plt Count 390, MPV 9.3, Immature Gran % (Auto) 0.700, Neut % (Auto) 91.1 H, Lymph % (Auto) 4.4 L, [place] % (Auto) 3.7, Eos % (Auto) 0.0, Baso % (Auto) 0.1, Absolute Neuts (auto) 17.6 H, Absolute Lymphs (auto) 0.85, Nucleated RBC % 0 11/30/21 05:33: Sodium 138, Potassium 4.4, Chloride 109 H, Carbon Dioxide 25.0, Anion Gap 4 L, BUN 26 H, Creatinine 0.81, Estim Creat Clear Calc 108.53, Est GFR (MDRD) Af Amer 124, Est GFR (MDRD) Non-Af 103, BUN/Creatinine Ratio 32.2 H, Glucose 148 H, Calcium 9.0 Microbiology: Microbiology 11/29/21 02:15 Nasal Secretion SARS-CoV-2 Antigen (Rapid) - Final Radiography Diagnostic Testing: Radiology Impression Thyroid Ultrasound 11/30/21 05:55 IMPRESSION: Heterogeneous enlargement of both lobes of the thyroid with bilateral solid masses more pronounced on the right side. Biopsy of the 1.8 cm x 1.8 cm x 1.8 cm irregular solid nodule in the right lobe is recommended. Electronically Signed: Dontae Dalton MD at 10:46 EST , D/C Instructions Discharge Diet: Low fat / Low cholesterol Discharge Activity: Return to Normal Activity Return to work on: 12/03/21 (If cleared by primary care physician) Meaningful Use Info Meaningful Use Diagnoses (Choose all that apply): None applicable Discharge Plan Admission Admit Date/Time: 11/29/21 00:53 Primary Reason for Your Visit: Shortness of Breath Attending Provider: Namita Roque Primary Care Provider: Chad Hennessy Instructions Additional Instructions / Restrictions: 1. complete course of antibiotics 2. completed steroid taper 3. Pulmonary follow-up 4. quit smoking 5. Thyroid ultrasound shows enlargement with solid bilateral masses right greater than left -Biopsy is recommended--> please see referral to Dr. Cabral below Discharge Orders/Prescriptions Prescriptions: New nicotine 21 mg/24 hr Patch 24 Hour 21 mg transdermal DAILY Qty: 7 RF: 0 prednisone 10 mg tablet 10 mg PO DAILY Qty: 40 RF: 0 levofloxacin 750 mg tablet 750 mg PO Q24H Qty: 7 RF: 0 albuterol sulfate 90 mcg/actuation HFA aerosol inhaler 1 inh inhalation Q6H PRN (Reason: shortness of breath or wheezing) Qty: 6.7 RF: 1 levothyroxine [Synthroid] 50 mcg tablet 50 mcg PO DAILY Qty: 30 RF: 0 Continued atorvastatin [Lipitor] 20 mg tablet 20 mg PO QHS RF: 0 carvedilol [Coreg] 3.125 mg tablet 3.25 mg PO BID RF: 0 albuterol sulfate 90 mcg/actuation HFA aerosol inhaler 2 puff INHALATION Q4H PRN PRN (Reason: Dyspnea, wheezing) RF: 0 lisinopril 5 mg tablet 5 mg PO DAILY RF: 0 Spiriva with HandiHaler 18 mcg capsule, w/inhalation device 18 mcg INHALATION DAILY RF: 0 aspirin 81 mg Tablet 81 mg PO DAILY RF: 0 Referrals / Follow Up: Chad Hennessy MD [Primary Care Provider] - See Referral Note (As scheduled) Herson Cabral MD [STAFF PHYSICIAN] - Within 1 Week (This referral is for biopsy of your thyroid nodules) Clovis Beckford MD [STAFF PHYSICIAN] - See Referral Note (Allow for PCP referral) Disposition Disposition (needs filled in before D/C Order can be placed): Home, Self Care Charges/Coding Visit Charges Inpatient E&M: 38816 Disch Hosp
--- NOTE | 2021-11-30 12:30 | NURSING ---
Patient aware that he needs to follow up with Dr. Cabral for thyroid nodules found on ultrasound and possible biopsy. Office number given, also aware of script sent for Synthroid to his pharmacy.
== END 2021-11-30 12:30 | disposition home or self-care (01) | DRG 190 ==
LOC: ED 11-29 01:42 → MS3 11-29 01:45 → ED 12-01 07:38
PROVIDERS: Student in an Organized Health Care Education/Training Program; Admitting Provider Family Medicine; Emergency Provider Emergency Medicine; PCP Family Medicine; Visit Provider Internal Medicine
DX: J44.1 Chronic obstructive pulmonary disease with (acute) exacerbation (principal); J96.01 Acute respiratory failure with hypoxia; E01.0 Iodine-deficiency related diffuse (endemic) goiter; F17.210 Nicotine dependence, cigarettes, uncomplicated; I10 Essential (primary) hypertension; E78.5 Hyperlipidemia, unspecified; I25.10 Atherosclerotic heart disease of native coronary artery without angina pectoris; D64.9 Anemia, unspecified; Z77.098 Contact with and (suspected) exposure to other hazardous, chiefly nonmedicinal, chemicals; R79.89 Other specified abnormal findings of blood chemistry; Z79.82 Long term (current) use of aspirin; Z95.1 Presence of aortocoronary bypass graft
CPT/HCPCS: 36415; 71045; 71275; 76536; 80048; 80053; 84145; 84439; 84443; 84484; 85025; 85379; 87426; 93005; 94640; 96374; 99251; 99285; 99406; Q9967; A4216; G0463

== ENCOUNTER 2022-01-04 16:56 | Outpatient (CLI) | payer BC, SELFPAY ==
--- NOTE | 2022-01-04 | FLU_PTH ---
PATIENT: ROBBY BENNETT LOC: [facility] U#:[id number] AGE/SX: 61/M ROOM: RE01/04/[address]: Dr. Chadwick Weathers MD : 1960 BED: DIS: 01/04/2022 SPEC #: [id number] RECD: 01/04/22 16:50 STATUS: PANKAJ MARY #: [id number] PÉREZ: 01/04/22 00:[address]: Chadwick Weathers DEPT: CYTOLOGY RECD BY: Alla Carvajal ENTERED: 01/05/22 09:14 SP TYPE: Fluid OTHR DR: Dr. Chad Hennessy MD Tissues: A - Thyroid gland, NOS B - Thyroid gland, NOS Procedures: Special Stain Group II Surgery Specimen Level IV Cytospin Fluid Cytology Other HEADER OPERATION: Fine needle aspiration right thyroid PRE-OP DIAGNOSIS: Right thyroid nodule TISSUE SUBMITTED: A ? FNA, right thyroid fluid, B - FNA, right thyroid x8 slides DIAGNOSIS CYTOLOGY A. Right thyroid nodule fluid, FNA (cytospin and cell block): Rare benign follicular cells noted. B. Right thyroid nodule, FNA (smears): A few clusters of benign follicular cells noted. The specimen is limited in evaluation due to lack of adequate number of follicular cells. See comment. SJ:lynette 01/06/2022 COMMENT Correlation with clinical, radiologic findings and appropriate follow up are necessary. CYTOLOGY STUDY Slides are reviewed. CYTOLOGY GROSS A - Received is 30 ml of light pinkish-brown cloudy fluid labeled with the patient's name and and designated per the requisition as right thyroid. Submitted for cytology preparation including cell block. B - Received are eight smears labeled with the patient's name and designated per the requisition as right thyroid. Submitted for staining. / lynette 01/05/2022 TC: Cannot code CPT: 66438, 92278 x2
== END 2022-01-04 23:59 | disposition home or self-care (01) ==
LOC: LABSPEC 16:58
PROVIDERS: PCP Family Medicine; Referring Provider Surgery; Visit Provider Surgery
DX: E04.1 Nontoxic single thyroid nodule (principal)
CPT/HCPCS: 88108; 88161; 88305; 88313

== ENCOUNTER 2022-04-12 17:22 | Emergency (ER) | payer BC, SELFPAY ==
[2022-04-12 17:22] VITALS: BP 142/91; PULSE 83; RESP 20; TEMP 36.2; O2SAT 95; BMI 24.5
--- NOTE | 2022-04-12 17:51 | EKG12_ITS ---
Test Reason : Blood Pressure : / mmHG Vent. Rate : 068 BPM Atrial Rate : 068 BPM P-R Int : 146 ms QRS Dur : 154 ms QT Int : 440 ms P-R-T Axes : 040 -66 -09 degrees QTc Int : 467 ms Normal sinus rhythm Right bundle branch block Left anterior fascicular block Bifascicular block Abnormal ECG Confirmed by MOO CULLEN, TONY ([id number]), medical transcription editor WALT LYLES ([id number]) on 04/14/2022 9:52:12 AM Referred By: Confirmed By:TONY CORTÉS MD
--- NOTE | 2022-04-12 17:53 | ED.VIS.DYS ---
HPI History of Present Illness Chief Complaint: Shortness of Breath Informant: patient Onset/Context/Timing Onset: Days (5) Timing: Continuous Quality: Positive for Dyspnea on exertion and Wheezing Current Severity: Mild Maximum Severity: Severe Worsened by: Exertion and Coughing Relieved by: Rest and Albuterol (Not helping much today) Associated Symptoms cough and clear sputum Chest Pain: Positive for Tightness Narrative Narrative: Patient has been having a COPD exacerbation for the last 5 days or so. Initially was seen at [facility] urgent care and saw a nurse practitioner that put him on Levaquin 750 mg daily (although according to the patient he had a chest x-ray that showed NO pneumonia), he was put on steroids 40 mg daily, and then a taper. He has taken 2 days worth of the 40 mg, he has been taking 10 mg 4 times per day but regardless he is feeling no better. Today he was checking his pulse ox and he was in the 94-95 range at rest but when he would exert himself a little and get very winded he went down to the high 80s. He is not on home oxygen. No fevers or chills. PFSH PFSH Medical History CAD (coronary artery disease) COPD (chronic obstructive pulmonary disease) History of prostate cancer HLD (hyperlipidemia) HTN (hypertension) Thoracic aortic aneurysm Tobacco use Home Medications albuterol sulfate 2 puff INHALATION Q4H PRN PRN 11/29/21 [History Last Taken 11/28/21 16:00] aspirin 81 mg PO DAILY 11/29/21 [History Last Taken 11/28/21 08:00] atorvastatin [Lipitor] 20 mg PO QHS 11/29/21 [History Last Taken 11/28/21 08:00] carvedilol [Coreg] 3.25 mg PO BID 11/29/21 [History Last Taken 11/28/21 08:00] lisinopril 5 mg PO DAILY 11/29/21 [History Last Taken 11/28/21 08:00] levofloxacin 750 mg PO Q24H #7 tab 11/30/21 [Rx Last Taken Unknown] levothyroxine [Synthroid] 50 mcg PO DAILY #30 tab 11/30/21 [Rx Last Taken Unknown] prednisone 10 mg PO DAILY #40 tab 11/30/21 [Rx Last Taken Unknown] albuterol sulfate [Ventolin HFA] 1 - 2 puff INHALATION Q4H PRN PRN #1 inhaler 04/12/22 [Rx Last Taken Unknown] benzonatate 100 mg PO TID PRN PRN 04/12/22 [History Last Taken Unknown] [id number] [Trelegy Ellipta] 1 inh INHALATION DAILY 04/12/22 [History Last Taken Unknown] prednisone 60 mg PO DAILY 4 Days #12 tablet 04/12/22 [Rx Last Taken Unknown] Allergy/AdvReac Type Severity Reaction Status Date / Time acetaminophen [From Vicodin] AdvReac Other Verified 04/12/22 17:22 hydrocodone bitartrate AdvReac Other Verified 04/12/22 17:22 [From Vicodin] Family History Father Prostate cancer Dementia Mother CHF (congestive heart failure) Diabetes Heart disease Surgical History S/P insertion of endovascular thoracic aortic stent graft S/P prostatectomy Social History household members: spouse Smoking Status: Current every day smoker tobacco type: cigarettes alcohol intake: current alcohol intake frequency: holidays/special occasions only substance use type: does not use ROS ROS ED Constitutional Constitutional ED: Denies chills or fever(s) Eyes Eyes: Denies change in vision or diplopia ENT ENT ED: Denies rhinorrhea or sore throat Cardiovascular Cardiovascular: Reports chest pain; Denies palpitations Respiratory/Chest Respiratory/Chest: Reports cough, dyspnea, dyspnea on exertion and wheezing Gastrointestinal Gastrointestinal: Denies abdominal pain, diarrhea, nausea or vomiting Genitourinary Genitourinary ED: Denies dysuria or hematuria Musculoskeletal Musculoskeletal: Denies back pain or neck pain Integumentary Denies abscess or rash Neurologic Neurologic: Denies headache(s), paresthesias or weakness Psychiatric Psychiatric: Denies anxiety or suicidal thoughts EXAM Physical Exam Const Vital Signs: 04/12/22 17:22 04/12/22 17:42 04/12/22 17:58 Temperature 97.2 F L Temperature Source Temporal Pulse Rate 83 69 Respiratory Rate 20 H 18 Respiratory Effort Short of Breath Respiratory Pattern Tachypnea Normal Blood Pressure 142/91 H Blood Pressure Mean 108 Pulse Ox 95 Oxygen Delivery Method Room Air 04/12/22 18:10 04/12/22 18:19 04/12/22 19:26 Temperature Temperature Source Pulse Rate 74 76 74 Respiratory Rate 18 18 15 Respiratory Effort Respiratory Pattern Normal Normal Blood Pressure 136/90 H Blood Pressure Mean 105 Pulse Ox 93 Oxygen Delivery Method Positive well nourished and well developed General Appearance ED: well developed and NAD HEENT Reports moist mucous membranes normocephalic and atraumatic Eyes PERRL and EOMs intact bilaterally Neck full ROM and supple Resp normal respiratory effort and clear to auscultation bilaterally Resp Narrative: Mildly tachypnea, speaking in 10+ word sentences. Not wheezing, diminished throughout and somewhat tight. Effort and Inspection: prolonged expiratory phase; Negative for pursed lip breathing Cardio regular rate, regular rhythm and no murmurs GI non-tender and non-distended Auscultation: normoactive bowel sounds Palpation: soft Back/Spine no CVA tenderness General Back: other FROM Extremity normal to inspection and no calf tenderness General Extremety ED: Negative for edema, pulses abnormal or tenderness General Extremity: Negative for edema or pulses abnormal Neuro oriented x3, CN's II-XII intact bilaterally and no sensory deficits noted Sensorium / Orientation: awake and alert Motor Exam: strength 5/5 throughout Skin no rashes or lesions noted and no wounds MDM MDM MDM Narrative Medical decision making narrative: Patient was given terbutaline, followed by a round of nebulizer treatments. He did feel improved but still felt tight and wheezy. His oxygenation is good at rest. His 1 view chest x-ray my interpretation shows no pneumonia, radiology in agreement. Cardiac work-up unremarkable. I offered admission he declines and prefers to stay home and take off some work and stay in air conditioning with the high humidity this week. His Levaquin 750 is dosed at pneumonia dosing, not typical COPD/bronchitis dosing, it is overkill but will prevent bacterial superinfection nevertheless as I discussed with him and I would not change it now that he already has it. My plan is to increase his steroids for the next 4 days to 60 mg daily, he can pause a taper during this time and resume it on day 5, I will give him Solu-Medrol 125 here, he is only at 20 mg today because he was taken 10 mg at a time 4 times a day, we discussed what to do with the rest of those extra 2 pills at the end of the taper which hopefully will help him. I think his leukocytosis is related to the prednisone. Lab Data Attestation: I reviewed the patient's lab results. Labs: Laboratory Results - last 24 hr 04/12/22 04/12/22 18:00 18:00 WBC 16.8 H RBC 4.96 Hgb 13.2 Hct 40.5 MCV 81.7 MCH 26.6 L MCHC 32.6 RDW Std Deviation 49.4 H RDW Coeff of Diallo 16.9 H Plt Count 369 MPV 9.3 Immature Gran % (Auto) 0.400 Neut % (Auto) 86.6 H Lymph % (Auto) 6.1 L [place] % (Auto) 6.5 Eos % (Auto) 0.2 Baso % (Auto) 0.2 Absolute Neuts (auto) 14.6 H Absolute Lymphs (auto) 1.03 Nucleated RBC % 0 Sodium 140 Potassium 3.9 Chloride 110 H Carbon Dioxide 25.0 Anion Gap 5 BUN 22 H Creatinine 0.88 Estim Creat Clear Calc 99.90 Est GFR (MDRD) Af Amer 112 Est GFR (MDRD) Non-Af 93 BUN/Creatinine Ratio 25.0 H Glucose 107 H Calcium 9.5 Radiography Diagnostic Testing: Clinical Impression(s) from Imaging Studies Chest X-Ray 04/12/22 18:13 IMPRESSION: There are no acute findings. Electronically Signed: Bart Aquino MD at 18:24 EDT Reading Location ID and State: [address] [place] [address] , Service support , Rhythm Strip Rhythm Strip: Sinus Rhythm Rate: 70 Ectopy: None EKG Initial EKG: Attestation: I personally reviewed and interpreted this EKG as follows: Interpretation: Sinus Rhythm, No Acute Injury Pattern, RBBB and LAFB Discharge Plan Triage Chief Complaint: Shortness of Breath ED Provider: Bart Brock Dx/Rx/DC Orders Clinical Impression: Acute exacerbation of chronic obstructive pulmonary disease (COPD), Chest tightness Instructions: ED COPD Flare Prescriptions: New prednisone 20 MG tablet 60 mg PO DAILY 4 Days Qty: 12 RF: 0 albuterol sulfate [Ventolin HFA] 1 INHALER inhaler 1 - 2 puff inhalation Q4H PRN PRN (Reason: Wheezing) Qty: 1 RF: 0 No Action atorvastatin [Lipitor] 20 mg tablet 20 mg PO QHS RF: 0 carvedilol [Coreg] 3.125 mg tablet 3.25 mg PO BID RF: 0 albuterol sulfate 90 mcg/actuation HFA aerosol inhaler 2 puff INHALATION Q4H PRN PRN (Reason: Dyspnea, wheezing) RF: 0 lisinopril 5 mg tablet 5 mg PO DAILY RF: 0 aspirin 81 mg Tablet 81 mg PO DAILY RF: 0 prednisone 10 mg tablet 10 mg PO DAILY Qty: 40 RF: 0 levofloxacin 750 mg tablet 750 mg PO Q24H Qty: 7 RF: 0 levothyroxine [Synthroid] 50 mcg tablet 50 mcg PO DAILY Qty: 30 RF: 0 benzonatate 100 mg capsule 100 mg PO TID PRN PRN (Reason: Cough) RF: 0 Trelegy Ellipta 100-62.5-25 mcg blister with device 1 inh INHALATION DAILY RF: 0 Stand Alone Forms: ED Work / School Excuse Primary Care Provider: Chad Hennessy Referrals: Chad Hennessy MD [Primary Care Provider] - 3-5 Days Activity Restrictions/Additional Instructions: You are done taking steroids for today 04/12; take the new prescription for the next 4 days until gone. Then, resume your taper starting on day 5, 04/17. Disposition Disposition: Home, Self Care
[2022-04-12 17:58] VITALS: PULSE 69; RESP 18
[2022-04-12] MEDS: Ipratropium/Albuterol Sulfate 3 ML AMPUL.NEB INHALATION (17:59)
[2022-04-12] MEDS: Albuterol 2.5 MG/3 ML VIAL.NEB. INHALATION ×3 (18:03→18:17)
[2022-04-12] MEDS: Terbutaline 1 MG/ML Vial 0.25 MG SC (18:07)
[2022-04-12 18:10] VITALS: PULSE 74; RESP 18
[2022-04-12 18:10] LABS: Absolute Lymphocyte Count 1.03 X10^3/uL (0.83-4.51); Absolute Neutrophil Count 14.6 X10^3/uL (2.0-7.7); Basophil# 0.04 X10^3/uL; Basophil% 0.2 % (0-1); Eosinophil# 0.04 X10^3/uL; Eosinophils% 0.2 % (0-5); Hematocrit 40.5 % (40-54); Hemoglobin 13.2 g/dL (13.0-16.5); Lymphocyte # 1.03 X10^3/ul (0.83-4.51); Lymphocyte % 6.1 % (19-41); Mean Corp Hgb Conc 32.6 g/dL (32-36); Mean Corpuscular Hgb 26.6 pg (27.0-32.0); Mean Corpuscular Volume 81.7 fL (80-94); Mean Platelet Vol. 9.3 fl (6.2-12.0); Monocyte# 1.09 X10^3/uL; Monocyte% 6.5 % (0-10); NRBC Flagged by Analyzer 0 % (0-5); Neutrophil # 14.56 X10^3/uL (2.7-7.7); Neutrophil % 86.6 % (47-70); Platelet Count 369 K/mm3 (150-450); RBC Distribution Width CV 16.9 % (11.6-14.6); RBC Distribution Width SD 49.4 fl (35.1-43.9); Red Blood Count 4.96 M/mm3 (4.6-6.2); White Blood Count 16.8 K/mm3 (4.4-11.0)
--- NOTE | 2022-04-12 18:13 | RAD_ITS ---
STUDY: X-RAY CHEST REASON FOR EXAM: Male, 61 years old. Technologist Notes sob worsened today, hx of copd, notes this happens with the humidity. tried albuterol inhalers. Tuesday was seen by PCP given steroids, has not been helping, pcp gave pt abx today. cough sob copd TECHNIQUE: XR Chest 1 View COMPARISON: 11.28.21 FINDINGS: There is a left pleural effusion. There are multiple median sternotomy wires. Normal size heart. Normal mediastinum and simona. Normal visualized pulmonary arteries. There is atherosclerotic calcification of the aortic arch with tortuosity. There are diffuse degenerative changes of the visualized thoracic spine. There is degenerative osteoarthritis of the bilateral shoulders. There is no demonstrated abnormality of the visualized soft tissue structures of the upper abdomen. RAD/Chest 1 View (Portable) IMPRESSION: There are no acute findings. Electronically Signed: Bart Aquino MD at 18:24 EDT ,
[2022-04-12 18:19] VITALS: PULSE 76; RESP 18
[2022-04-12 18:23] LABS: Anion Gap 5 (5-15); BUN 22 mg/dL (7-18); Calcium,Total 9.5 mg/dL (8.5-10.1); Chloride 110 mmol/L (98-107); Creatinine, Serum 0.88 mg/dL (0.70-1.30); EST Glomerular Filtration Rate 93 mL/min (>60); Est Glom Filt Rate - Afr Amer 112 mL/min (>60); Glucose 107 mg/dL (74-106); Potassium 3.9 mmol/L (3.5-5.1); Sodium Level 140 mmol/L (136-145)
[2022-04-12 19:26] VITALS: BP 136/90; PULSE 74; RESP 15; O2SAT 93
[2022-04-12] MEDS: MethylPREDNISolone 125 MG/2 ML Vial IV (20:36)
[2022-04-12 20:37] VITALS: BP 131/64; PULSE 68; RESP 16; O2SAT 94
== END 2022-04-12 20:51 | disposition home or self-care (01) ==
PROVIDERS: Emergency Provider Emergency Medicine; PCP Family Medicine; Visit Provider Emergency Medicine
DX: J44.1 Chronic obstructive pulmonary disease with (acute) exacerbation (principal); I25.10 Atherosclerotic heart disease of native coronary artery without angina pectoris; R07.89 Other chest pain; I10 Essential (primary) hypertension; E78.5 Hyperlipidemia, unspecified; F17.210 Nicotine dependence, cigarettes, uncomplicated; Z79.890 Hormone replacement therapy; Z79.82 Long term (current) use of aspirin; Z79.52 Long term (current) use of systemic steroids; Z85.46 Personal history of malignant neoplasm of prostate; Z90.79 Acquired absence of other genital organ(s)
CPT/HCPCS: 71045; 80048; 85025; 93005; 94640; 96372; 96374; 99284

== ENCOUNTER 2022-05-04 06:32 | Observation (INO) | payer BC, SELFPAY ==
[2022-05-04] VITALS (12 sets, daily range): BP systolic 114–156; BP diastolic 60–94; PULSE 59–72; RESP 12–30; TEMP 36.3–37.2; O2SAT 92–95; BMI 25.1; BMI 24.6
--- NOTE | 2022-05-04 06:45 | RAD_ITS ---
STUDY: X-RAY CHEST REASON FOR EXAM: Male, 61 years old. SOB TECHNIQUE: 2 AP AP portable upright views of the chest. COMPARISON: Previous chest radiographs of 04/12/2022 and 11/28/2021.. FINDINGS: Sternal wires are again noted. Findings of pulmonary emphysema are again demonstrated with hyperlucency of the upper lungs and mild crowding of the bronchovascular markings in the mid to lower lungs. No superimposed acute pulmonary infiltrates are identified. Heart size remains within normal limits with mild elongation of the thoracic aorta. Mild pruning of peripheral pulmonary vascular markings due to pulmonary emphysema. No pulmonary venous hypertension is noted. No pleural effusion. No acute osseous abnormality. A 6.5 cm retrocardiac density with central lucency is noted, consistent with hiatal hernia, not significantly changed. There is no demonstrated abnormality of the visualized soft tissue structures of the upper abdomen. RAD/Chest 1 View (Portable) IMPRESSION: Previous median sternotomy. Pulmonary emphysema. Hiatal hernia. No pneumonia, pulmonary edema or other acute abnormality. Electronically Signed: Huan Winn MD at 7:55 EDT ,
--- NOTE | 2022-05-04 06:45 | EKG12_ITS ---
Test Reason : SOB Blood Pressure : / mmHG Vent. Rate : 071 BPM Atrial Rate : 071 BPM P-R Int : 172 ms QRS Dur : 166 ms QT Int : 440 ms P-R-T Axes : 046 -59 019 degrees QTc Int : 478 ms Normal sinus rhythm Right bundle branch block Left anterior fascicular block Bifascicular block Abnormal ECG Confirmed by MOO CULLEN, TONY ([id number]), slot editor WALT LYLES ([id number]) on 05/06/2022 8:58:41 AM Referred By: [facility] Confirmed By:TONY CORTÉS MD
--- NOTE | 2022-05-04 06:47 | EDS_ITS ---
HPI <Dr. Michael Buitrago MD - Last Filed: 05/04/22 06:52> History of Present Illness Chief Complaint: Shortness of Breath Informant: patient and spouse/S.O. Narrative Narrative: Patient presents with continuing dyspnea. His symptoms started about 3 weeks ago. He had been seen in urgent care placed on steroids. He was then seen here and the steroids were increased. He has followed up with his physicians at [facility]. He was also on what sounds like Levaquin at one time. He is now just finished another course of steroids. Steroids did not help him as much as usual. He states he gets very tight wheezing. It is worse when he lays down. This patient used to be on oxygen but is not now. He states he cannot walk more than about 15 feet before he gets extremely short of breath. No history of DVT or PE. He and his thought he was on blood thinners but when I look through their meds I did not see one and they think maybe it was just after his surgery a little over a year ago. Patient had what sounds like an ascending aortic aneurysm repair along with repair of aortic valve but not new valve. He has no history of coronary artery disease. His chart mentions coronary artery disease but he supposedly has never had stent or bypass surgery or a heart attack. He does have significant COPD. He has blood pressure also. He has not had hemoptysis. He does have a lot of coughing but not really bringing up significant amounts of sputum. He is not having fevers. No leg pain or swelling. PFSH <Dr. Michael Buitrago MD - Last Filed: 05/04/22 06:52> [facility] Medical History CAD (coronary artery disease) COPD (chronic obstructive pulmonary disease) History of prostate cancer HLD (hyperlipidemia) HTN (hypertension) Thoracic aortic aneurysm Tobacco use Home Medications albuterol sulfate 90 mcg/actuation aerosol inhaler 2 puff inhalation Q4H PRN PRN Dyspnea, wheezing 11/29/21 [History Last Taken 11/28/21 16:00] aspirin 81 mg tablet 81 mg PO DAILY heart 11/29/21 [History Last Taken 11/28/21 08:00] atorvastatin 20 mg tablet (Lipitor) 20 mg PO QHS cholesterol 11/29/21 [History Last Taken 11/28/21 08:00] carvedilol 3.125 mg tablet (Coreg) 3.25 mg PO BID HTN 11/29/21 [History Last Taken 11/28/21 08:00] lisinopril 5 mg tablet 5 mg PO DAILY HTN 11/29/21 [History Last Taken 11/28/21 08:00] levothyroxine 50 mcg tablet (Synthroid) 50 mcg PO DAILY #30 tabs 11/30/21 [Rx Last Taken Unknown] albuterol sulfate 90 mcg/actuation aerosol inhaler (Ventolin HFA) 1 - 2 puff inhalation Q4H PRN PRN Wheezing ##1 04/12/22 [Rx Last Taken Unknown] fluticasone fur. 100 mcg-umeclid 62.5 mcg-vilant 25 mcg inhalat.powder (Trelegy Ellipta) 1 inh inhalation DAILY 04/12/22 [History Last Taken Unknown] varenicline 1 mg tablet 1 tab BID 05/04/22 [History Last Taken Unknown] Allergy/AdvReac Type Severity Reaction Status Date / Time acetaminophen [From Vicodin] AdvReac Other Verified 05/04/22 06:34 hydrocodone bitartrate AdvReac Other Verified 05/04/22 06:34 [From Vicodin] Family History Father Prostate cancer Dementia Mother CHF (congestive heart failure) Diabetes Heart disease Surgical History S/P insertion of endovascular thoracic aortic stent graft S/P prostatectomy Social History household members: spouse Smoking Status: Current every day smoker tobacco type: cigarettes alcohol intake: current alcohol intake frequency: holidays/special occasions only substance use type: does not use ROS <Dr. Michael Buitrago MD - Last Filed: 05/04/22 06:52> ROS ED Constitutional Constitutional ED: Denies chills or fever(s) Eyes Eyes: Denies change in vision ENT ENT ED: Denies rhinorrhea or sore throat Cardiovascular Cardiovascular: Denies chest pain or palpitations Respiratory/Chest Respiratory/Chest: Reports cough, dyspnea and dyspnea on exertion Gastrointestinal Gastrointestinal: Denies nausea or vomiting Musculoskeletal Musculoskeletal: Denies myalgias Integumentary Denies rash Neurologic Neurologic: Denies paresthesias or weakness Endocrine Endocrinology: Denies polydipsia or polyuria Hematologic/Lymphatic Hematologic/Lymphatic: Denies easy bleeding or easy bruising Allergic/Immunologic Allergic/Immunologic ED: Denies urticaria EXAM <Dr. Michael Buitrago MD - Last Filed: 05/04/22 06:52> Physical Exam Const Vital Signs: 05/04/22 06:33 05/04/22 06:38 05/04/22 06:58 Temperature 97.3 F L Temperature Source Temporal Pulse Rate 71 72 Respiratory Rate 30 H 18 Respiratory Effort Short of Breath Respiratory Depth Normal Respiratory Pattern Tachypnea Blood Pressure 142/92 H Blood Pressure Mean 108 Pulse Ox 94 Oxygen Delivery Method Room Air Room Air 05/04/22 10:19 05/04/22 07:30 05/04/22 08:30 Temperature 98.1 F 98.0 F Temperature Source Temporal Temporal Pulse Rate 67 59 L 60 Respiratory Rate 18 12 16 Respiratory Effort Respiratory Depth Respiratory Pattern Blood Pressure 118/60 125/70 H Blood Pressure Mean 79 88 Pulse Ox 94 94 Oxygen Delivery Method Room Air Room Air 05/04/22 09:30 Temperature 98.4 F Temperature Source Temporal Pulse Rate 64 Respiratory Rate 16 Respiratory Effort Respiratory Depth Respiratory Pattern Blood Pressure 122/63 H Blood Pressure Mean 82 Pulse Ox 93 Oxygen Delivery Method Room Air Positive well nourished and well developed Constitutional Narrative: Patient does have increased work of breathing even sitting in bed General Appearance ED: well developed HEENT Reports moist mucous membranes Eyes EOMs intact bilaterally Neck no JVD Resp Resp Narrative: Respiratory rate and effort is increased. No pain with deep breath. He is not moving much air. He has tight end expiratory wheezing. I do not hear rales or rhonchi though. Auscultation: wheezes and diminished lung sounds; Negative for rales or rhonchi Cardio regular rate and regular rhythm GI non-tender Palpation: soft Back/Spine no CVA tenderness Extremity normal to inspection Extremity Narrative: Legs are thin, no edema cords or tenderness. Neuro oriented x3 Neuro Narrative: Patient is not at all sleepy or lethargic. Psych mental status grossly normal Skin Rashes: no rashes <Dr. Sravani Pisano MD - Last Filed: 05/04/22 10:49> Physical Exam Const Vital Signs: 05/04/22 06:33 05/04/22 06:38 05/04/22 06:58 Temperature 97.3 F L Temperature Source Temporal Pulse Rate 71 72 Respiratory Rate 30 H 18 Respiratory Effort Short of Breath Respiratory Depth Normal Respiratory Pattern Tachypnea Blood Pressure 142/92 H Blood Pressure Mean 108 Pulse Ox 94 Oxygen Delivery Method Room Air Room Air 05/04/22 10:19 05/04/22 07:30 05/04/22 08:30 Temperature 98.1 F 98.0 F Temperature Source Temporal Temporal Pulse Rate 67 59 L 60 Respiratory Rate 18 12 16 Respiratory Effort Respiratory Depth Respiratory Pattern Blood Pressure 118/60 125/70 H Blood Pressure Mean 79 88 Pulse Ox 94 94 Oxygen Delivery Method Room Air Room Air 05/04/22 09:30 Temperature 98.4 F Temperature Source Temporal Pulse Rate 64 Respiratory Rate 16 Respiratory Effort Respiratory Depth Respiratory Pattern Blood Pressure 122/63 H Blood Pressure Mean 82 Pulse Ox 93 Oxygen Delivery Method Room Air MDM <Dr. Michael Buitrago MD - Last Filed: 05/04/22 06:52> [facility] Lab Data Labs: Laboratory Results - last 24 hr 05/04/22 05/04/22 05/04/22 06:41 06:41 06:41 WBC 13.5 H RBC 4.91 Hgb 12.9 L Hct 41.4 MCV 84.3 MCH 26.3 L MCHC 31.2 L RDW Std Deviation 53.8 H RDW Coeff of Diallo 17.6 H Plt Count 339 MPV 9.0 Immature Gran % (Auto) 0.400 Neut % (Auto) 68.5 Lymph % (Auto) 13.3 L [place] % (Auto) 6.6 Eos % (Auto) 10.4 H Baso % (Auto) 0.8 Absolute Neuts (auto) 9.3 H Absolute Lymphs (auto) 1.80 Nucleated RBC % 0 Sodium 140 Potassium 3.7 Chloride 108 H Carbon Dioxide 28.0 Anion Gap 4 L BUN 19 H Creatinine 0.95 Estim Creat Clear Calc 92.54 Est GFR (MDRD) Af Amer 103 Est GFR (MDRD) Non-Af 85 BUN/Creatinine Ratio 20.0 Glucose 120 H Calcium 9.9 Troponin I High Sens 6 B-Natriuretic Peptide 29.4 Radiography Diagnostic Testing: Clinical Impression(s) from Imaging Studies Chest X-Ray 05/04/22 06:45 IMPRESSION: Previous median sternotomy. Pulmonary emphysema. Hiatal hernia. No pneumonia, pulmonary edema or other acute abnormality. Electronically Signed: Huan Winn MD at 7:55 EDT , Chest CTA 05/04/22 07:41 IMPRESSION: Hyperinflation and emphysematous changes. No evidence of pulmonary embolism. Moderate sized hiatal hernia. Enlargement of the left adrenal gland. This is unchanged. Electronically Signed: Dontae Dalton MD at 8:27 EDT , EKG Initial EKG: Comments: EKG done for dyspnea read by me shows a normal sinus rhythm. There is right bundle branch block. No ventricular ectopy seen. There is diffuse nonspecific changes likely related to his bundle branch block. No sign of infarct. AR interval is normal. QRS duration is long. QTC is borderline long at 478 ms <Dr. Sravani Pisano MD - Last Filed: 05/04/22 10:49> [facility] Lab Data Labs: Laboratory Results - last 24 hr 05/04/22 05/04/22 05/04/22 06:41 06:41 06:41 WBC 13.5 H RBC 4.91 Hgb 12.9 L Hct 41.4 MCV 84.3 MCH 26.3 L MCHC 31.2 L RDW Std Deviation 53.8 H RDW Coeff of Diallo 17.6 H Plt Count 339 MPV 9.0 Immature Gran % (Auto) 0.400 Neut % (Auto) 68.5 Lymph % (Auto) 13.3 L [place] % (Auto) 6.6 Eos % (Auto) 10.4 H Baso % (Auto) 0.8 Absolute Neuts (auto) 9.3 H Absolute Lymphs (auto) 1.80 Nucleated RBC % 0 Sodium 140 Potassium 3.7 Chloride 108 H Carbon Dioxide 28.0 Anion Gap 4 L BUN 19 H Creatinine 0.95 Estim Creat Clear Calc 92.54 Est GFR (MDRD) Af Amer 103 Est GFR (MDRD) Non-Af 85 BUN/Creatinine Ratio 20.0 Glucose 120 H Calcium 9.9 Troponin I High Sens 6 B-Natriuretic Peptide 29.4 Radiography Diagnostic Testing: Clinical Impression(s) from Imaging Studies Chest X-Ray 05/04/22 06:45 IMPRESSION: Previous median sternotomy. Pulmonary emphysema. Hiatal hernia. No pneumonia, pulmonary edema or other acute abnormality. Electronically Signed: Huan Winn MD at 7:55 EDT , Chest CTA 05/04/22 07:41 IMPRESSION: Hyperinflation and emphysematous changes. No evidence of pulmonary embolism. Moderate sized hiatal hernia. Enlargement of the left adrenal gland. This is unchanged. Electronically Signed: Dontae Dalton MD at 8:27 EDT , Treatment and Re-Evaluation Narrative: Patient signed out to me pending blood work and chest x-ray results. Chest x- ray reveals COPD changes per my interpretation with no focal infiltrate. CBC was a white count of 13.5 which may be reactive from the recent steroids. Chemistry studies unremarkable. Troponin is 6 and BNP is 29. On repeat evaluation patient remains slightly tachypneic. He has decreased air movement. CTA of the chest is obtained and reveals no evidence of PE. There is a moderate sized hiatal hernia and emphysematous changes are noted. At this time patient has failed outpatient therapy multiple times. I will speak with hospitalist regarding admission. Hospitalist did ask us to ambulate the patient to see if he becomes hypoxic. He was able to ambulate in the emergency room but O2 sat only dropped to 90%. Respiratory rate did increase to 30. After patient was able to sit and stabilize I listen to his lungs again. He has continued poor air movement. Peak flows are obtained and are only 150. He is given another round of aerosol treatments. Following aerosol treatments his peak flows remain at 150. I spoke with hospitalist again and patient will be admitted. Discharge Plan Dx/Rx/DC Orders Clinical Impression: COPD exacerbation Disposition Disposition: Acute Care [facility]
[2022-05-04] MEDS: MethylPREDNISolone 125 MG/2 ML Vial IV (06:58)
[2022-05-04] MEDS: Ipratropium/Albuterol Sulfate 3 ML AMPUL.NEB INHALATION ×2 (06:58→10:16)
[2022-05-04] MEDS: Albuterol 2.5 MG/3 ML VIAL.NEB. INHALATION ×3 (06:58→10:19)
[2022-05-04 07:03] LABS: Absolute Neutrophil Count 9.3 X10^3/uL (2.0-7.7); Basophil# 0.11 X10^3/uL; Basophil% 0.8 % (0-1); Eosinophil# 1.41 X10^3/uL; Eosinophils% 10.4 % (0-5); Hematocrit 41.4 % (40-54); Hemoglobin 12.9 g/dL (13.0-16.5); Lymphocyte % 13.3 % (19-41); Mean Corp Hgb Conc 31.2 g/dL (32-36); Mean Corpuscular Hgb 26.3 pg (27.0-32.0); Mean Corpuscular Volume 84.3 fL (80-94); Monocyte% 6.6 % (0-10); NRBC Flagged by Analyzer 0 % (0-5); Neutrophil # 9.26 X10^3/uL (2.7-7.7); Neutrophil % 68.5 % (47-70); Platelet Count 339 K/mm3 (150-450); RBC Distribution Width CV 17.6 % (11.6-14.6); RBC Distribution Width SD 53.8 fl (35.1-43.9); Red Blood Count 4.91 M/mm3 (4.6-6.2); White Blood Count 13.5 K/mm3 (4.4-11.0)
[2022-05-04 07:20] LABS: Anion Gap 4 (5-15); BUN 19 mg/dL (7-18); Calcium,Total 9.9 mg/dL (8.5-10.1); Chloride 108 mmol/L (98-107); Creatinine, Serum 0.95 mg/dL (0.70-1.30); EST Glomerular Filtration Rate 85 mL/min (>60); Est Glom Filt Rate - Afr Amer 103 mL/min (>60); Estimated Creatinine Clearance 92.54 ml/min; Glucose 120 mg/dL (74-106); Potassium 3.7 mmol/L (3.5-5.1); Sodium Level 140 mmol/L (136-145); Troponin-I HS 6 pg/mL (3.0-78.0)
--- NOTE | 2022-05-04 07:41 | CT_ITS ---
STUDY: CTA CHEST REASON FOR EXAM: Male, 61 years old. Dyspnea RADIATION DOSAGE (If Supplied By Facility): CTDIvol = ( 12.10 ) mGy, DLP = ( 448.91 ) mGycm TECHNIQUE: The examination was performed with the intravenous administration of [id number] 100ML. Post-processing of the angiographic images was performed, with multiplanar reformation and 3D reconstruction. Individualized dose optimization techniques were used for this CT. COMPARISON: Comparison is made with prior study dated 11/28/2021. FINDINGS: Diffuse enlargement of the thyroid gland more prominent on the right side. This is unchanged. Normal enhancement of the main pulmonary artery and right and left pulmonary arteries. Normal enhancement of the bilateral peripheral pulmonary arteries. There is no demonstrated pulmonary embolism. There is atherosclerotic calcification of the aortic arch with tortuosity. There is no demonstrated aortic dissection. There are calcifications of the coronary arteries. Normal mediastinum. Normal hilar regions. Normal visualized trachea and bronchi. Hyperinflation. Emphysematous changes worse in the upper lobes. Normal pleura. Normal chest wall structures. There are degenerative changes of thoracic spine. There is evidence of the left adrenal enlargement suggestive of hyperplasia. Calcified splenic granulomas. Moderate sized hiatal hernia. Stable loss of height of the L1 vertebra. CT/CTA Chest W/WO Contrast IMPRESSION: Hyperinflation and emphysematous changes. No evidence of pulmonary embolism. Moderate sized hiatal hernia. Enlargement of the left adrenal gland. This is unchanged. Electronically Signed: Dontae Dalton MD at 8:27 EDT ,
[2022-05-04 07:58] LABS: BNP,B-Type NATRIURETIC PEPTIDE 29.4 pg/mL (0-100)
--- NOTE | 2022-05-04 11:03 | PCM.HP.STD ---
[facility] - General General Date of Admission: 05/04/22 HPI Narrative ROBBY BENNETT, is a 61 M who presents to the hospital with recurrent shortness of breath. He does have a history of COPD and is being managed on Trelegy and other inhalers by a data architect in the [facility] system. He has been having shortness of breath for the last 3 weeks and had presented to the hospital on April 12, 2022 and was given some steroids prior to this he had seen his PCP and was given steroids as well as an antibiotic for 7 days.. He says that he has not really improved and he still feeling short of breath. Today he was not requiring any oxygen however upon ambulation he became severely tachypneic up into the 30s and so it was recommended that he be admitted. He does have a leukocytosis however this is likely related to his steroid use, and CT of the chest did not show any consolidation. With ambulation he went down to about 90% on room air. He does also endorse orthopnea and significant dyspnea on exertion. He did have a recent aortic root repair and aortic valve repair secondary to an aortic root dilatation. He has never had a sleep study. [facility] Medical History CAD (coronary artery disease) COPD (chronic obstructive pulmonary disease) History of prostate cancer HLD (hyperlipidemia) HTN (hypertension) Thoracic aortic aneurysm Tobacco use Home Medications albuterol sulfate 90 mcg/actuation aerosol inhaler 2 puff inhalation Q4H PRN PRN Dyspnea, wheezing 11/29/21 [History Last Taken 05/04/22 06:30] aspirin 81 mg tablet 81 mg PO DAILY heart 11/29/21 [History Last Taken 05/04/22 08:00] atorvastatin 20 mg tablet (Lipitor) 20 mg PO QHS cholesterol 11/29/21 [History Last Taken 05/04/22 08:00] carvedilol 3.125 mg tablet (Coreg) 3.25 mg PO BID HTN 11/29/21 [History Last Taken 05/04/22 08:00] lisinopril 5 mg tablet 5 mg PO DAILY HTN 11/29/21 [History Last Taken 05/04/22 08:00] levothyroxine 50 mcg tablet (Synthroid) 50 mcg PO DAILY #30 tabs 11/30/21 [Rx Last Taken 05/04/22 08:00] albuterol sulfate 90 mcg/actuation aerosol inhaler (Ventolin HFA) 1 - 2 puff inhalation Q4H PRN PRN Wheezing ##1 04/12/22 [Rx Last Taken Unknown] fluticasone fur. 100 mcg-umeclid 62.5 mcg-vilant 25 mcg inhalat.powder (Trelegy Ellipta) 1 inh inhalation DAILY 04/12/22 [History Last Taken 05/04/22 07:00] varenicline 1 mg tablet 1 tab BID 05/04/22 [History Last Taken 05/04/22 08:00] Allergy/AdvReac Type Severity Reaction Status Date / Time acetaminophen [From Vicodin] AdvReac Other Verified 05/04/22 06:34 hydrocodone bitartrate AdvReac Other Verified 05/04/22 06:34 [From Vicodin] Family History Father Prostate cancer Dementia Mother CHF (congestive heart failure) Diabetes Heart disease Surgical History S/P insertion of endovascular thoracic aortic stent graft S/P prostatectomy Social History household members: spouse Smoking Status: Current every day smoker tobacco type: cigarettes alcohol intake: current alcohol intake frequency: holidays/special occasions only substance use type: does not use ROS Constitutional Constitutional: Denies chills, fatigue, fever(s) or malaise Eyes Eyes: Denies blurry vision ENT HEENT: Denies headache(s) or nasal discharge Cardiovascular Cardiovascular: Reports dyspnea on exertion and orthopnea; Denies chest pain or syncope Respiratory/Chest Respiratory/Chest: Reports cough and dyspnea; Denies shortness of breath at rest or shortness of breath with exertion Gastrointestinal Gastrointestinal: Denies constipation, diarrhea, nausea or vomiting Genitourinary Genitourinary: Denies dysuria Neurologic Neurologic: Denies focal weakness, numbness or tremor(s) Psychiatric Psychiatric: Denies anxiety or depression Vital Signs Vital Signs Vital Signs: 05/04/22 06:33 05/04/22 06:38 05/04/22 06:58 Temperature 97.3 F L Temperature Source Temporal Pulse Rate 71 72 Respiratory Rate 30 H 18 Respiratory Effort Short of Breath Respiratory Depth Normal Respiratory Pattern Tachypnea Blood Pressure 142/92 H Blood Pressure Mean 108 Pulse Ox 94 Oxygen Delivery Method Room Air Room Air 05/04/22 10:19 05/04/22 07:30 05/04/22 08:30 Temperature 98.1 F 98.0 F Temperature Source Temporal Temporal Pulse Rate 67 59 L 60 Respiratory Rate 18 12 16 Respiratory Effort Respiratory Depth Respiratory Pattern Blood Pressure 118/60 125/70 H Blood Pressure Mean 79 88 Pulse Ox 94 94 Oxygen Delivery Method Room Air Room Air 05/04/22 09:30 Temperature 98.4 F Temperature Source Temporal Pulse Rate 64 Respiratory Rate 16 Respiratory Effort Respiratory Depth Respiratory Pattern Blood Pressure 122/63 H Blood Pressure Mean 82 Pulse Ox 93 Oxygen Delivery Method Room Air Weight Weight: 195 lb 8.8 oz Body Mass Index (BMI) 25.1 Physical Exam Const alert, oriented x3 and no apparent distress General Appearance: cooperative HEENT normocephalic and moist oral mucous membranes Eyes PERRL, EOMs intact bilaterally and conjunctivae normal Neck supple and no JVD Resp normal respiratory effort, no retractions and no use of accessory muscles Resp Narrative: Poor air movement Auscultation: diminished lung sounds; Negative for crackles, rales, rhonchi or wheezes Cardio regular rate, regular rhythm, S1 normal heart sound, S2 normal heart sound and no murmurs GI soft to palpation, non-tender and non-distended; Negative for hepatosplenomegaly Extremity no clubbing, cyanosis or edema Skin no rashes or lesions noted Neuro no focal motor deficits and no sensory deficits noted Psych affect normal Appearance: appropriate Results Lab / Micro Data Result Diagrams: 05/04/22 06:41 05/04/22 06:41 Labs: Laboratory Results - last 24 hr 05/04/22 06:41: WBC 13.5 H, RBC 4.91, Hgb 12.9 L, Hct 41.4, MCV 84.3, MCH 26.3 L, MCHC 31.2 L, RDW Std Deviation 53.8 H, RDW Coeff of Diallo 17.6 H, Plt Count 339, MPV 9.0, Immature Gran % (Auto) 0.400, Neut % (Auto) 68.5, Lymph % (Auto) 13.3 L, [place] % (Auto) 6.6, Eos % (Auto) 10.4 H, Baso % (Auto) 0.8, Absolute Neuts (auto) 9.3 H, Absolute Lymphs (auto) 1.80, Nucleated RBC % 0 05/04/22 06:41: Sodium 140, Potassium 3.7, Chloride 108 H, Carbon Dioxide 28.0, Anion Gap 4 L, BUN 19 H, Creatinine 0.95, Estim Creat Clear Calc 92.54, Est GFR (MDRD) Af Amer 103, Est GFR (MDRD) Non-Af 85, BUN/Creatinine Ratio 20.0, Glucose 120 H, Calcium 9.9, Troponin I High Sens 6 05/04/22 06:41: B-Natriuretic Peptide 29.4 Micro: Microbiology 05/04/22 06:55 Nasal Secretion SARS-CoV-2 & FLU Antigen (Rapid) - Final Radiology Impression Chest X-Ray 05/04/22 06:45 IMPRESSION: Previous median sternotomy. Pulmonary emphysema. Hiatal hernia. No pneumonia, pulmonary edema or other acute abnormality. Electronically Signed: Huan Winn MD at 7:55 EDT , Chest CTA 05/04/22 07:41 IMPRESSION: Hyperinflation and emphysematous changes. No evidence of pulmonary embolism. Moderate sized hiatal hernia. Enlargement of the left adrenal gland. This is unchanged. Electronically Signed: Dontae Dalton MD at 8:27 EDT , Assessment & Plan Assessment/Plan (1) COPD exacerbation: PLAN: Plan 1. Acute COPD exacerbation ? He has not hypoxic and does not require oxygen at this time ? We will place him on IV steroids and consult pulmonology ? Sputum cultures pending ? Continue with incentive spirometry ? Continue with inhalers 2. 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 Blood pressures are stable ? With his home blood pressure medications ? Continue with Lipitor ? Most of his care is at the [facility], will trial him on a dose of Lasix and see if this helps with his shortness of breath 3. Hypothyroidism ? Stable ? Continue with Synthroid DVT: Ambulation Charges/Coding Visit Charges OBSV E&M: 85782 Initial observation care L3
[2022-05-04] MEDS: Furosemide 20 MG/2 ML VIAL IV (12:42)
[2022-05-04] MEDS: 0.9% Saline Lock 10 ML Syringe IV (12:42)
--- NOTE | 2022-05-04 13:35 | EX.PCM.CONCC ---
Assessment & Plan Assessment/Plan (1) COPD exacerbation: PLAN: Plan RECOMMENDATIONS: 1. Agree with steroids and bronchodilators. Add mucolytic 2. Hold on antibiotics pending sputum culture 3. Check respiratory viral panel 4. Check echocardiogram for pulmonary hypertension 5. Walking oximetry prior to discharge 6. Potential room air ABG prior to discharge for evaluation of NIV IMPRESSIONS: 1. Probable COPD exacerbation Unclear etiology at this time. Patient has had multiple steroid bursts and antibiotics without improvement. Agree with steroids and bronchodilators. We will add mucolytic. Reasonable to hold on antibiotics for now pending sputum culture. Will send a viral panel as this could have a protracted course. Would recommend obtaining an echocardiogram as patient would be at high risk for pulmonary hypertension. Patient does have an accentuated S2, but does not have significant lower extremity edema to suggest congestive heart failure. Patient with multiple exacerbations in the last 6 months. If work-up thus far is unremarkable, may obtain in room air ABG to see if patient may qualify for NIV. Patient is already on triple therapy at baseline. Patient should likely follow-up with his primary clinical social worker at [facility]. Review of the CT scan shows subjectively more than moderate emphysematous changes. Patient may be having significant air trapping leading to dyspnea on exertion. Chest x-ray is not suggestive of a paralyzed diaphragm. Hiatal hernia is likely adding to restrictive physiology and worsening shortness of breath. 2. CAD/history of thoracic aortic aneurysm with AV repair/ongoing tobacco abuse/hypertension/hyperlipidemia/hiatal hernia Complicates care, management, recovery and prognosis. Okay to continue with baseline medications from my perspective. Encourage smoking cessation. Consider H2 sharon HPI Consult Data Date of Consult: 05/04/22 HPI Narrative Reason for Consultation: COPD exacerbation HPI Narrative: ROBBY BENNETT is a 61 M, with past medical history listed below, who presents to [facility] on 05/04/2022 secondary to progressive shortness of breath. Patient reportedly started to have symptoms approximately 4 weeks ago and was seen in urgent care and placed on steroids. Patient reportedly then followed up with his PCP at [facility] and was placed on Levaquin and another dose of steroids. Patient states that he has had progressive worsening of his shortness of breath over the last 4 days to the point that he is gone from walking up 2 flights of steps to approximately 15 feet. Patient does not have any history of DVT or PE, but does carry a diagnosis of COPD. Patient states that he has been told that he is at about 60% lung function. Patient has been compliant with his inhaler therapy. Patient does have an extensive cardiac history with an ascending aortic aneurysm and aortic valve repair. Patient does report a cough that is intermittently productive of scant sputum. Patient denies any hemoptysis, fevers or lower extremity edema. Patient does not use supplemental oxygen at baseline. Patient was smoking up until 3 days prior to presentation. In the ER, patient was afebrile, but tachypneic as high as 30 breaths/min. Patient was saturating well on room air with good blood pressure. Laboratory work-up showed a white blood cell count of 13.5, hemoglobin of 12.9 and platelets of 339. BMP was within normal limits. Chemistry was relatively unremarkable except for an elevated bicarbonate of 28. Chest x-ray showed emphysema and a hiatal hernia. This was confirmed by a CT of the chest also noting the patient had no PE. EKG showed normal sinus rhythm with a QTC of 478. Patient has been admitted to the hospital in observation status for COPD exacerbation. Patient typically gets his pulmonary care at the [facility], but given that he has had multiple rounds of steroids, an inpatient consult was obtained. Patient states that he has not felt well for at least 4 to 5 weeks. Patient has not had any issues with lower extremity edema. Patient is not reporting any sick contacts. Patient has not had any occupational or environmental exposures. Patient is on Trelegy at baseline and reports compliance. Patient has not had any syncope or cyanosis. Review of systems otherwise negative from a constitutional, HEENT, respiratory, cardiovascular, GI, genitourinary, musculoskeletal, skin, neurologic, psychiatric and hematologic system unless stated above. PFSH Medical History CAD (coronary artery disease) COPD (chronic obstructive pulmonary disease) History of prostate cancer HLD (hyperlipidemia) HTN (hypertension) Thoracic aortic aneurysm Tobacco use Home Medications albuterol sulfate 90 mcg/actuation aerosol inhaler 2 puff inhalation Q4H PRN PRN Dyspnea, wheezing 11/29/21 [History Last Taken 05/04/22 06:30] aspirin 81 mg tablet 81 mg PO DAILY heart 11/29/21 [History Last Taken 05/04/22 08:00] atorvastatin 20 mg tablet (Lipitor) 20 mg PO QHS cholesterol 11/29/21 [History Last Taken 05/04/22 08:00] carvedilol 3.125 mg tablet (Coreg) 3.25 mg PO BID HTN 11/29/21 [History Last Taken 05/04/22 08:00] lisinopril 5 mg tablet 5 mg PO DAILY HTN 11/29/21 [History Last Taken 05/04/22 08:00] levothyroxine 50 mcg tablet (Synthroid) 50 mcg PO DAILY #30 tabs 11/30/21 [Rx Last Taken 05/04/22 08:00] albuterol sulfate 90 mcg/actuation aerosol inhaler (Ventolin HFA) 1 - 2 puff inhalation Q4H PRN PRN Wheezing ##1 04/12/22 [Rx Last Taken Unknown] fluticasone fur. 100 mcg-umeclid 62.5 mcg-vilant 25 mcg inhalat.powder (Trelegy Ellipta) 1 inh inhalation DAILY 04/12/22 [History Last Taken 05/04/22 07:00] varenicline 1 mg tablet 1 tab BID 05/04/22 [History Last Taken 05/04/22 08:00] Allergy/AdvReac Type Severity Reaction Status Date / Time acetaminophen [From Vicodin] AdvReac Other Verified 05/04/22 06:34 hydrocodone bitartrate AdvReac Other Verified 05/04/22 06:34 [From Vicodin] Family History Father Prostate cancer Dementia Mother CHF (congestive heart failure) Diabetes Heart disease Surgical History S/P insertion of endovascular thoracic aortic stent graft S/P prostatectomy Social History household members: spouse Smoking Status: Current every day smoker tobacco type: cigarettes alcohol intake: current alcohol intake frequency: holidays/special occasions only substance use type: does not use ROS ROS Narrative See HPI Physical Exam Const alert, oriented x3 and no apparent distress Constitutional Narrative: Appears older than stated age General Appearance: cooperative HEENT normocephalic and moist oral mucous membranes Eyes PERRL, EOMs intact bilaterally and conjunctivae normal Neck supple and no JVD Chest Chest Narrative: Increased AP diameter Resp normal respiratory effort, no retractions and no use of accessory muscles Resp Narrative: Poor air movement Auscultation: diminished lung sounds; Negative for crackles, rales, rhonchi or wheezes Cardio regular rate, regular rhythm, S1 normal heart sound and no murmurs; Negative for S2 normal heart sound Cardio Narrative: Accentuated S2 GI normal to inspection, nondistended, normoactive bowel sounds Back/Spine no CVA tenderness Extremity no clubbing, cyanosis or edema Skin no rashes or lesions noted Neuro CN's II-XII intact bilaterally, moves all extremities, no focal motor deficits and no sensory deficits noted Psych affect normal Appearance: appropriate Medical Records Data Attestation: I reviewed the patient's medical records Medical records narrative: Documentation from previous hospitalizations have been reviewed. Patient has never had an echocardiogram here. Patient has had multiple ER visits noted. [facility] clinic information is not available for review. Lab / Micro Data Attestation: I reviewed the patient's lab results. Result Diagrams: 05/04/22 06:41 05/04/22 06:41 Labs: Laboratory Results - last 24 hr 05/04/22 06:41: WBC 13.5 H, RBC 4.91, Hgb 12.9 L, Hct 41.4, MCV 84.3, MCH 26.3 L, MCHC 31.2 L, RDW Std Deviation 53.8 H, RDW Coeff of [place]ial[place] 17.6 H, Plt Count 339, MPV 9.0, Immature Gran % (Auto) 0.400, Neut % (Auto) 68.5, Lymph % (Auto) 13.3 L, [place] % (Auto) 6.6, Eos % (Auto) 10.4 H, Baso % (Auto) 0.8, Absolute Neuts (auto) 9.3 H, Absolute Lymphs (auto) 1.80, Nucleated RBC % 0 05/04/22 06:41: Sodium 140, Potassium 3.7, Chloride 108 H, Carbon Dioxide 28.0, Anion Gap 4 L, BUN 19 H, Creatinine 0.95, Estim Creat Clear Calc 92.54, Est GFR (MDRD) Af Amer 103, Est GFR (MDRD) Non-Af 85, BUN/Creatinine Ratio 20.0, Glucose 120 H, Calcium 9.9, Troponin I High Sens 6 05/04/22 06:41: B-Natriuretic Peptide 29.4 Micro: Microbiology 05/04/22 06:55 Nasal Secretion SARS-CoV-2 & FLU Antigen (Rapid) - Final Rhythm Strip Rate: 63 Ectopy: None Radiology Impression Chest X-Ray 05/04/22 06:45 IMPRESSION: Previous median sternotomy. Pulmonary emphysema. Hiatal hernia. No pneumonia, pulmonary edema or other acute abnormality. Electronically Signed: Huan Winn MD at 7:55 EDT , Chest CTA 05/04/22 07:41 IMPRESSION: Hyperinflation and emphysematous changes. No evidence of pulmonary embolism. Moderate sized hiatal hernia. Enlargement of the left adrenal gland. This is unchanged. Electronically Signed: Dontae Dalton MD at 8:27 EDT , Charges/Coding Visit Charges Inpatient E&M: 35459 Init Hosp L2
--- NOTE | 2022-05-04 13:37 | ECHOCS_ITS ---
Reason For Study: PULMONARY HYPETENSION Procedure This was a 2D Doppler, Color Flow transthoracic echocardiogram. Exam performed portable in patient room. Left Ventricle Normal LV size. Mild concentric left ventricular hypertrophy. Left ventricular systolic function is normal. The estimated ejection fraction is 70 %. No evidence for diastolic dysfunction. Right Ventricle Moderately dilated right ventricle. A calcified moderator band is seen in the right ventricle. Normal systolic function. Atria Normal left atrium. Normal right atrium. No doppler evidence for ASD. Mitral Valve There is no mitral annular calcification. Normal mitral valve. Trivial mitral valve insufficiency. Tricuspid Valve Normal tricuspid valve. Trivial tricuspid valve insufficiency. Right ventricular systolic pressure estimated to be 32 mmHg. Aortic Valve Trisinus/trileaflet aortic valve. Normal aortic valve. Pulmonic Valve The pulmonic valve is not well visualized. Mild (1+) pulmonic valve insufficiency. Great Vessels Aortic root repair. Normal sized aortic root. Pericardium/Pleural No pericardial effusion. MMode/2D Measurements & Calculations LVIDd: 4.7 cm IVSd: 1.3 cm Ao root diam: 3.4 cm LVIDs: 2.8 cm LVPWd: 1.4 cm RVDd: 5.0 cm FS: 39.6 % LAV(MOD-bp): 52.9 ml LVAd ap4: 36.0 cm2 SV(MOD-sp4): 88.2 ml LAV(MOD-bp) Indexed: 24.8 ml/m2 LVLd ap4: 8.5 cm LAV(MOD-sp2): 43.2 ml EDV(MOD-sp4): 127.4 ml LAV(MOD-sp4): 57.7 ml EDV(sp4-el): 129.9 ml LVAs ap4: 17.9 cm2 LVLs ap4: 6.9 cm ESV(MOD-sp4): 39.2 ml ESV(sp4-el): 39.4 ml EF(MOD-sp4): 69.2 % EF(sp4-el): 69.6 % SV(sp4-el): 90.5 ml LA A4 area: 19.4 cm2 LA dimension(2D): 3.4 cm RA A4 area: 18.7 cm2 Time Measurements MV dec time: 0.23 sec Doppler Measurements & Calculations MV E max robert: 67.5 cm/sec Lat Peak E' Robert: 10.7 cm/sec Med Peak E' Robert: 7.8 cm/sec MV A max robert: 88.0 cm/sec E/E' lat: 6.3 E/E' med: 8.7 MV E/A: 0.77 Ao V2 max: 160.0 cm/sec LV V1 max: 107.6 cm/sec PA V2 max: 112.8 cm/sec Ao max P.2 mmHg LV V1 max P.6 mmHg PI end-d robert: 136.8 cm/sec TR max robert: 272.4 cm/sec TR max P.7 mmHg ECHO/Echo Complete Interpretation Summary Left ventricular systolic function is normal. The estimated ejection fraction is 70 %. Mild concentric left ventricular hypertrophy. Moderately dilated right ventricle. A calcified moderator band is seen in the right ventricle. Trivial mitral valve insufficiency. Trivial tricuspid valve insufficiency. Mild (1+) pulmonic valve insufficiency. Aortic root repair. Right ventricular systolic pressure estimated to be 32 mmHg. No evidence for diastolic dysfunction. Ordering Physician: Jaycob Pruett Referring Physician: MAREN PATRICK Performed By: Thalia Lacy RDCS
[2022-05-04] MEDS: guaiFENesin 1,200 MG Tablet 1200 MG PO ×2 (14:47→20:23)
[2022-05-04] MEDS: Varenicline 1 MG Tablet PO (20:23)
[2022-05-04] MEDS: Atorvastatin Calcium 20 MG Tablet PO (20:24)
[2022-05-04] MEDS: Carvedilol 3.125 MG TABLET 3.25 MG PO (20:24)
[2022-05-05 02:02] VITALS: BP 151/94; PULSE 61; RESP 18; TEMP 36.7; O2SAT 93
[2022-05-05] MEDS: Levothyroxine 50 MCG Tablet PO (05:30)
[2022-05-05] MEDS: 0.9% Saline Lock 10 ML Syringe IV ×2 (05:30→08:54)
[2022-05-05 06:18] LABS: Absolute Lymphocyte Count 0.98 X10^3/uL (0.83-4.51); Absolute Neutrophil Count 15.9 X10^3/uL (2.0-7.7); Basophil# 0.02 X10^3/uL; Basophil% 0.1 % (0-1); Eosinophil# 0.01 X10^3/uL; Eosinophils% 0.1 % (0-5); Hematocrit 38.2 % (40-54); Hemoglobin 12.2 g/dL (13.0-16.5); Lymphocyte # 0.98 X10^3/ul (0.83-4.51); Lymphocyte % 5.5 % (19-41); Mean Corp Hgb Conc 31.9 g/dL (32-36); Mean Corpuscular Hgb 25.9 pg (27.0-32.0); Mean Corpuscular Volume 81.1 fL (80-94); Mean Platelet Vol. 9.1 fl (6.2-12.0); NRBC Flagged by Analyzer 0 % (0-5); Neutrophil # 15.86 X10^3/uL (2.7-7.7); Neutrophil % 88.9 % (47-70); Platelet Count 362 K/mm3 (150-450); RBC Distribution Width CV 17.3 % (11.6-14.6); RBC Distribution Width SD 51.5 fl (35.1-43.9); Red Blood Count 4.71 M/mm3 (4.6-6.2); White Blood Count 17.9 K/mm3 (4.4-11.0)
[2022-05-05 06:48] LABS: Anion Gap 4 (5-15); BUN 23 mg/dL (7-18); BUN/Creat Ratio 24.8 RATIO (10-20); Calcium,Total 9.7 mg/dL (8.5-10.1); Chloride 107 mmol/L (98-107); Creatinine, Serum 0.93 mg/dL (0.70-1.30); EST Glomerular Filtration Rate 88 mL/min (>60); Est Glom Filt Rate - Afr Amer 106 mL/min (>60); Estimated Creatinine Clearance 94.53 ml/min; Glucose 137 mg/dL (74-106); Sodium Level 138 mmol/L (136-145)
--- NOTE | 2022-05-05 07:19 | PCM.PN.INT ---
Assessment & Plan Assessment/Plan (1) COPD exacerbation: PLAN: Plan RECOMMENDATIONS: 1. Agree with steroids for 5 days, mucolytic and bronchodilators. 2. Hold on antibiotics pending sputum culture 3. Diurese with Lasix 4. Potential outpatient right heart catheterization 5. Potential discharge if able to ambulate on room air. Walking oximetry ordered 6. Potential room air ABG prior to discharge for evaluation of NIV IMPRESSIONS: 1. Probable COPD exacerbation Unclear etiology at this time. Patient has had multiple steroid bursts and antibiotics without improvement. Agree with steroids, mucolytic and bronchodilators. Viral panel was negative. Pulmonary artery pressures are elevated on echocardiogram. Patient would need a right heart catheterization for quantification clarification of pulmonary pressures. However, given lower baseline saturations, clinical concern for desaturation with ambulation. Will attempt diuresis again today. If patient is significantly improved following Lasix, could potentially discharge with an outpatient right heart catheterization. 2. CAD/history of thoracic aortic aneurysm with AV repair/ongoing tobacco abuse/hypertension/hyperlipidemia/hiatal hernia Complicates care, management, recovery and prognosis. Okay to continue with baseline medications from my perspective. Encourage smoking cessation. Consider H2 sharon Subjective Subjective Patient did well overnight. Patient subjectively feels improved compared to previous. Patient has had relatively nonproductive cough reported. Patient is denying any chest pain. Patient has not attempted to walk in the hallway. Objective Data Objective Data Vital Signs: Vital Signs Temp Pulse Resp BP Pulse Ox O2 Del Method 36.7 C 61 18 151/94 H 93 Room Air 05/05/22 02:02 05/05/22 02:02 05/05/22 02:02 05/05/22 02:02 05/05/22 02:02 05/05/22 02:02 Oxygen Delivery Method Room Air Weight: 87.1 kg Body Mass Index (BMI) 24.6 Lab / Micro Data Attestation: I reviewed the patient's lab results. Result Diagrams: 05/05/22 05:55 05/05/22 05:55 Labs: Laboratory Results - last 24 hr 05/04/22 06:41: Sodium 140, Potassium 3.7, Chloride 108 H, Carbon Dioxide 28.0, Anion Gap 4 L, BUN 19 H, Creatinine 0.95, Estim Creat Clear Calc 92.54, Est GFR (MDRD) Af Amer 103, Est GFR (MDRD) Non-Af 85, BUN/Creatinine Ratio 20.0, Glucose 120 H, Calcium 9.9, Troponin I High Sens 6 05/04/22 06:41: B-Natriuretic Peptide 29.4 05/05/22 05:55: WBC 17.9 H, RBC 4.71, Hgb 12.2 L, Hct 38.2 L, MCV 81.1, MCH 25.9 L, MCHC 31.9 L, RDW Std Deviation 51.5 H, RDW Coeff of Diallo 17.3 H, Plt Count 362, MPV 9.1, Immature Gran % (Auto) 0.400, Neut % (Auto) 88.9 H, Lymph % (Auto) 5.5 L, [place] % (Auto) 5.0, Eos % (Auto) 0.1, Baso % (Auto) 0.1, Absolute Neuts (auto) 15.9 H, Absolute Lymphs (auto) 0.98, Nucleated RBC % 0 05/05/22 05:55: Sodium 138, Potassium 4.0, Chloride 107, Carbon Dioxide 27.0, Anion Gap 4 L, BUN 23 H, Creatinine 0.93, Estim Creat Clear Calc 94.53, Est GFR (MDRD) Af Amer 106, Est GFR (MDRD) Non-Af 88, BUN/Creatinine Ratio 24.8 H, Glucose 137 H, Calcium 9.7 Micro: Microbiology 05/04/22 13:50 Interface Orders Respiratory Panel (PCR) - Final 05/04/22 12:55 Sputum, Expectorated/Coughed Gram Stain - Final 05/04/22 06:55 Nasal Secretion SARS-CoV-2 & FLU Antigen (Rapid) - Final Radiography Diagnostic Testing: Radiology Impression Chest X-Ray 05/04/22 06:45 IMPRESSION: Previous median sternotomy. Pulmonary emphysema. Hiatal hernia. No pneumonia, pulmonary edema or other acute abnormality. Electronically Signed: Huan Winn MD at 7:55 EDT , Chest CTA 05/04/22 07:41 IMPRESSION: Hyperinflation and emphysematous changes. No evidence of pulmonary embolism. Moderate sized hiatal hernia. Enlargement of the left adrenal gland. This is unchanged. Electronically Signed: Dontae Dalton MD at 8:27 EDT , Echocardiogram 05/04/22 13:37 Interpretation Summary Left ventricular systolic function is normal. The estimated ejection fraction is 70 %. Mild concentric left ventricular hypertrophy. Moderately dilated right ventricle. A calcified moderator band is seen in the right ventricle. Trivial mitral valve insufficiency. Trivial tricuspid valve insufficiency. Mild (1+) pulmonic valve insufficiency. Aortic root repair. Right ventricular systolic pressure estimated to be 32 mmHg. No evidence for diastolic dysfunction. Ordering Physician: Jaycob Pruett Referring Physician: MAREN PATRICK Performed By: Thalia Lacy RDCS Rhythm Strip Rate: 61 Ectopy: None Physical Exam Const alert, oriented x3 and no apparent distress Constitutional Narrative: Appears older than stated age General Appearance: cooperative HEENT normocephalic and moist oral mucous membranes Eyes PERRL, EOMs intact bilaterally and conjunctivae normal Neck supple and no JVD Chest Chest Narrative: Increased AP diameter Resp normal respiratory effort, no retractions and no use of accessory muscles Resp Narrative: Poor air movement Auscultation: diminished lung sounds; Negative for crackles, rales, rhonchi or wheezes Cardio regular rate, regular rhythm, S1 normal heart sound and no murmurs; Negative for S2 normal heart sound Cardio Narrative: Accentuated S2 GI normal to inspection, nondistended, normoactive bowel sounds Back/Spine no CVA tenderness Extremity no clubbing, cyanosis or edema Skin no rashes or lesions noted Neuro CN's II-XII intact bilaterally, moves all extremities, no focal motor deficits and no sensory deficits noted Psych affect normal Appearance: appropriate Charges/Coding Visit Charges Inpatient E&M: 13634 Subs Hosp L2
[2022-05-05 08:47] VITALS: BP 147/91; PULSE 65; RESP 18; TEMP 36.8; O2SAT 95
[2022-05-05] MEDS: Aspirin E.C. 81 MG Tablet PO (08:52)
[2022-05-05] MEDS: guaiFENesin 1,200 MG Tablet 1200 MG PO (08:52)
[2022-05-05] MEDS: Furosemide 40 MG/4 ML Vial IV (08:52)
[2022-05-05] MEDS: Varenicline 1 MG Tablet PO (08:53)
[2022-05-05] MEDS: Lisinopril 5 MG Tablet PO (08:53)
[2022-05-05] MEDS: Carvedilol 3.125 MG TABLET 3.25 MG PO (08:58)
--- NOTE | 2022-05-05 10:16 | PCM.DC ---
Discharge Instructions Diet Discharge Diet: Low fat / Low cholesterol Activity Discharge Activity: Return to Normal Activity Dressing / Incision Call your doctor if you observe: Fever of 101 or Higher, Shortness of breath, Dizziness, Fainting spells, Swelling in the ankles, Chest pain and Increased palpitations (irregular heartbeat) Follow Up Care Test Results: Test results from this visit will be discussed in further detail at your follow-up appointment, if applicable. Discharge Plan Admission Admit Date/Time: 05/04/22 10:48 Attending Provider: Pako Interiano Primary Care Provider: Chad Hennessy Consulting Providers: Jaycob Pruett ; Gerardo Del Angel ; Dee Bedoya ASSISTANT PROFESSOR OF PHILOSOPHY Instructions Additional Instructions / Restrictions: Follow-up with your PCP in 3 to 5 days to obtain a BMP to monitor your renal function since you are being discharged on Lasix. Also recommend following up with your advanced registered nurse and theatre manager for obstructive sleep apnea evaluation as well as a right heart cath as you have the right ventricular dilatation and could benefit from a right-sided heart cath. Discharge Orders/Prescriptions Prescriptions: New prednisone 10 mg tablet 10 mg PO DAILY Qty: 30 0RF Rx Instructions: 4 tablets daily for 3 days then 3 tablets daily for 3 days then 2 tablets daily for 3 days then 1 tablet daily for 3 days furosemide [Lasix] 20 mg tablet 20 mg PO DAILY Qty: 30 0RF Continued atorvastatin [Lipitor] 20 mg tablet 20 mg PO QHS Label Comments: take 1 tablet by mouth once daily carvedilol [Coreg] 3.125 mg tablet 3.25 mg PO BID Label Comments: take 1 tablet by mouth twice a day albuterol sulfate 90 mcg/actuation HFA aerosol inhaler 2 puff INHALATION Q4H PRN PRN (Reason: Dyspnea, wheezing) Label Comments: inhale 2 puffs by mouth as directed every 4 hours if needed for wheezing or shortness of breath lisinopril 5 mg tablet 5 mg PO DAILY Label Comments: take 1 tablet by mouth once daily aspirin 81 mg Tablet 81 mg PO DAILY levothyroxine [Synthroid] 50 mcg tablet 50 mcg PO DAILY Qty: 30 0RF Trelegy Ellipta 100-62.5-25 mcg blister with device 1 inh INHALATION DAILY albuterol sulfate [Ventolin HFA] 1 INHALER inhaler 1 - 2 puff inhalation Q4H PRN PRN (Reason: Wheezing) Qty: 1 0RF varenicline 1 mg tablet 1 tab BID Referrals / Follow Up: Chad Hennessy MD [Primary Care Provider] - Within 1 Week Disposition Disposition (needs filled in before D/C Order can be placed): Home, Self Care
--- NOTE | 2022-05-05 10:21 | DS.PCM_ITS ---
Providers Date of Admission: 05/04/22 Primary Care Physician: Dr. Maren Patrick MD Consultations 05/04/22 11:39 Consult: Rubber Stamp Maker / Pulmonary Medicine Routine Consulting Provider: Pulmonary Medicine allegra Lemons Reason for Consult: COPD exacerbation outpatient failure EMERGENT Consult: No MD Notified: Yes Date Notified: 05/04/22 Time Notified: 11:48 Method of Notification: Text Reason For Visit: COPD EXACERBATION Diagnosis Discharge Diagnosis (1) COPD exacerbation: Status: Chronic Code(s): J44.1 - Chronic obstructive pulmonary disease with (acute) exacerbation Plan 1. Acute COPD exacerbation ? He has not hypoxic and does not require oxygen at this time ? We will place him on IV steroids and consult pulmonology ? Sputum cultures pending ? Continue with incentive spirometry ? Continue with inhalers 2. 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 Blood pressures are stable ? With his home blood pressure medications ? Continue with Lipitor ? Most of his care is at the [facility], will trial him on a dose of Lasix and see if this helps with his shortness of breath 3. Hypothyroidism ? Stable ? Continue with Synthroid DVT: Ambulation Medications at Discharge Home Medications albuterol sulfate 90 mcg/actuation aerosol inhaler 2 puff inhalation Q4H PRN PRN Dyspnea, wheezing 11/29/21 aspirin 81 mg tablet 81 mg PO DAILY heart 11/29/21 atorvastatin 20 mg tablet (Lipitor) 20 mg PO QHS cholesterol 11/29/21 carvedilol 3.125 mg tablet (Coreg) 3.25 mg PO BID HTN 11/29/21 lisinopril 5 mg tablet 5 mg PO DAILY HTN 11/29/21 levothyroxine 50 mcg tablet (Synthroid) 50 mcg PO DAILY #30 tabs 11/30/21 albuterol sulfate 90 mcg/actuation aerosol inhaler (Ventolin HFA) 1 - 2 puff inhalation Q4H PRN PRN Wheezing ##1 04/12/22 fluticasone fur. 100 mcg-umeclid 62.5 mcg-vilant 25 mcg inhalat.powder (Trelegy Ellipta) 1 inh inhalation DAILY 04/12/22 varenicline 1 mg tablet 1 tab BID 05/04/22 furosemide 20 mg tablet (Lasix) 20 mg PO DAILY #30 tabs 05/05/22 prednisone 10 mg tablet 10 mg PO DAILY #30 tabs 05/05/22 Hospital Course Operations None Procedures 2-D Echocardiogram Summary of Care Provided Minutes Spent on Discharge: 45 Hospital Course: Per HPI: ROBBY BENNETT, is a 61 M who presents to the hospital with recurrent shortness of breath.? He does have a history of COPD and is being managed on Trelegy and other inhalers by a sculpture instructor in the [facility] system.? He has been having shortness of breath for the last 3 weeks and had presented to the hospital on April 12, 2022 and was given some steroids prior to this he had seen his PCP and was given steroids as well as an antibiotic for 7 days..? He says that he has not really improved and he still feeling short of breath.? Today he was not requiring any oxygen however upon ambulation he became severely tachypneic up into the 30s and so it was recommended that he be admitted.? He does have a leukocytosis however this is likely related to his steroid use, and CT of the chest did not show any consolidation.? With ambulation he went down to about 90% on room air.? He does also endorse orthopnea and significant dyspnea on exertion.? He did have a recent aortic root repair and aortic valve repair secondary to an aortic root dilatation.? He has never had a sleep study. Hospital Course: 1. Acute COPD exacerbation with possible pulmonary hypertension?61-year-old m becki who is status post open heart surgery for an aortic root repair as well as an aortic valve repair presented to the hospital with continued shortness of breath. He has had multiple courses of steroids as well as antibiotics without any improvement in his oxygenation. He does have symptoms of orthopnea so he was given a dose of Lasix and he says that that helped significantly. He had an echo which demonstrated right ventricular dilatation as well as RVSP of 32 mmHg consistent with mild pulmonary hypertension. He was given a dose of 40 of Lasix IV this morning which did improve his shortness of breath considerably as well. He had an ambulatory pulse ox which was negative and he states that his primary care doctor is getting him nocturnal oxygen. I discussed with him the need to follow-up with his PCP in 3 to 5 days to obtain a BMP to monitor his kidney function as he will be going home on Lasix. I also recommend that he follow-up with his sculpture instructor and his ems driver for right heart cath and a sleep study to evaluate for sleep apnea as he may benefit from CPAP at night. I discussed with him the plan for discharge today he expressed understanding of the risk benefits of going home and would like to go home today. 2. Hypertension, hyperlipidemia, hypothyroidism are all chronic medical conditions which complicate his care. His home medications were continued where appropriate Physical Exam Narrative Const alert, oriented x3 and no apparent distress General Appearance: cooperative HEENT normocephalic and moist oral mucous membranes Eyes PERRL, EOMs intact bilaterally and conjunctivae normal Neck supple and no JVD Resp normal respiratory effort, no retractions and no use of accessory muscles Resp Narrative: Poor air movement Auscultation: diminished lung sounds; Negative for crackles, rales, rhonchi or wheezes Cardio regular rate, regular rhythm, S1 normal heart sound, S2 normal heart sound and no murmurs GI soft to palpation, non-tender and non-distended; Negative for hepatosplenomegaly Extremity no clubbing, cyanosis or edema Skin no rashes or lesions noted Neuro no focal motor deficits and no sensory deficits noted Psych affect normal Appearance: appropriate Weight / BMI Weight Weight: 192 lb 0.362 oz Body Mass Index (BMI) 24.6 ABG / Lab / Microbiology Data Result Diagrams: 05/05/22 05:55 05/05/22 05:55 Laboratory: Laboratory Results - last 24 hr 05/05/22 05:55: WBC 17.9 H, RBC 4.71, Hgb 12.2 L, Hct 38.2 L, MCV 81.1, MCH 25.9 L, MCHC 31.9 L, RDW Std Deviation 51.5 H, RDW Coeff of Diallo 17.3 H, Plt Count 362, MPV 9.1, Immature Gran % (Auto) 0.400, Neut % (Auto) 88.9 H, Lymph % (Auto) 5.5 L, [place] % (Auto) 5.0, Eos % (Auto) 0.1, Baso % (Auto) 0.1, Absolute Neuts (a uto) 15.9 H, Absolute Lymphs (auto) 0.98, Nucleated RBC % 0 05/05/22 05:55: Sodium 138, Potassium 4.0, Chloride 107, Carbon Dioxide 27.0, Anion Gap 4 L, BUN 23 H, Creatinine 0.93, Estim Creat Clear Calc 94.53, Est GFR (MDRD) Af Amer 106, Est GFR (MDRD) Non-Af 88, BUN/Creatinine Ratio 24.8 H, Glucose 137 H, Calcium 9.7 Microbiology: Microbiology 05/04/22 12:55 Sputum, Expectorated/Coughed Gram Stain - Final 05/04/22 12:55 Sputum, Expectorated/Coughed Respiratory Culture - Preliminary Appears to be normal respiratory kenneth. Further studies to follow. 05/04/22 13:50 Interface Orders Respiratory Panel (PCR) - Final 05/04/22 06:55 Nasal Secretion SARS-CoV-2 & FLU Antigen (Rapid) - Final Radiography Diagnostic Testing: Radiology Impression Echocardiogram 05/04/22 13:37 Interpretation Summary Left ventricular systolic function is normal. The estimated ejection fraction is 70 %. Mild concentric left ventricular hypertrophy. Moderately dilated right ventricle. A calcified moderator band is seen in the right ventricle. Trivial mitral valve insufficiency. Trivial tricuspid valve insufficiency. Mild (1+) pulmonic valve insufficiency. Aortic root repair. Right ventricular systolic pressure estimated to be 32 mmHg. No evidence for diastolic dysfunction. Ordering Physician: Jaycob Pruett Referring Physician: MAREN PATRICK Performed By: Thalia Lacy RDCS D/C Instructions Discharge Diet: Low fat / Low cholesterol Call your doctor if you observe: Fever of 101 or Higher, Shortness of breath, Dizziness, Fainting spells, Swelling in the ankles, Chest pain and Increased palpitations (irregular heartbeat) Meaningful Use Info Meaningful Use Diagnoses (Choose all that apply): None applicable Discharge Plan Admission Admit Date/Time: 05/04/22 10:48 Attending Provider: Pako Interiano Primary Care Provider: Maren Patrick Consulting Providers: Jaycob Pruett ; Gerardo Del Angel ; Dee Bedoya TEXTILE CLOTHING AND FOOTWEAR MECHANIC Instructions Additional Instructions / Restrictions: Follow-up with your PCP in 3 to 5 days to obtain a BMP to monitor your renal function since you are being discharged on Lasix. Also recommend following up with your sculpture instructor and ems driver for obstructive sleep apnea evaluation as well as a right heart cath as you have the right ventricular dilatation and could benefit from a right-sided heart cath. Discharge Orders/Prescriptions Prescriptions: New prednisone 10 mg tablet 10 mg PO DAILY Qty: 30 0RF Rx Instructions: 4 tablets daily for 3 days then 3 tablets daily for 3 days then 2 tablets daily for 3 days then 1 tablet daily for 3 days furosemide [Lasix] 20 mg tablet 20 mg PO DAILY Qty: 30 0RF Continued atorvastatin [Lipitor] 20 mg tablet 20 mg PO QHS Label Comments: take 1 tablet by mouth once daily carvedilol [Coreg] 3.125 mg tablet 3.25 mg PO BID Label Comments: take 1 tablet by mouth twice a day albuterol sulfate 90 mcg/actuation HFA aerosol inhaler 2 puff INHALATION Q4H PRN PRN (Reason: Dyspnea, wheezing) Label Comments: inhale 2 puffs by mouth as directed every 4 hours if needed for wheezing or shortness of breath lisinopril 5 mg tablet 5 mg PO DAILY Label Comments: take 1 tablet by mouth once daily aspirin 81 mg Tablet 81 mg PO DAILY levothyroxine [Synthroid] 50 mcg tablet 50 mcg PO DAILY Qty: 30 0RF Trelegy Ellipta 100-62.5-25 mcg blister with device 1 inh INHALATION DAILY albuterol sulfate [Ventolin HFA] 1 INHALER inhaler 1 - 2 puff inhalation Q4H PRN PRN (Reason: Wheezing) Qty: 1 0RF varenicline 1 mg tablet 1 tab BID Referrals / Follow Up: Maren Patrick MD [Primary Care Provider] - Within 1 Week Disposition Disposition (needs filled in before D/C Order can be placed): Home, Self Care Charges/Coding Visit Charges OBSV E&M: 79790 Observation care discharge
[2022-05-05 10:47] VITALS: O2SAT 93; O2SAT 99
[2022-05-05 10:53] VITALS: BP 118/84; PULSE 71; RESP 18; TEMP 36.4; O2SAT 95
== END 2022-05-05 12:28 | disposition home or self-care (01) ==
LOC: ED 08:53 → MS3 11:27
PROVIDERS: Admitting Provider Family Medicine; Emergency Provider Emergency Medicine; PCP Family Medicine; Visit Provider Family Medicine
DX: J44.1 Chronic obstructive pulmonary disease with (acute) exacerbation (principal); K44.9 Diaphragmatic hernia without obstruction or gangrene; E03.9 Hypothyroidism, unspecified; E78.5 Hyperlipidemia, unspecified; I25.10 Atherosclerotic heart disease of native coronary artery without angina pectoris; I10 Essential (primary) hypertension; F17.210 Nicotine dependence, cigarettes, uncomplicated; Z79.82 Long term (current) use of aspirin; Z79.899 Other long term (current) drug therapy; Z79.51 Long term (current) use of inhaled steroids; Z79.890 Hormone replacement therapy; I45.2 Bifascicular block; I08.1 Rheumatic disorders of both mitral and tricuspid valves; R06.02 Shortness of breath
CPT/HCPCS: 36415; 71045; 71275; 80048; 83880; 84484; 85025; 87070; 87205; 87428; 87633; 93005; 93306; 94640; 96374; 96375; 96376; 99218; 99251; 99285; 99406; Q9967; A4216; G0378; G0463; J1940

== ENCOUNTER 2025-07-22 11:46 | Inpatient (IN) | payer OTHER, MEDICARE, SELFPAY ==
[2025-07-22] VITALS (7 sets, daily range): BP systolic 112–140; BP diastolic 90–109; PULSE 99–122; RESP 15–24; TEMP 36.2–36.6; O2SAT 95–100; BMI 27.1; BMI 27.2
--- NOTE | 2025-07-22 14:12 | EKG12_ITS ---
Test Reason : GENERAL Blood Pressure : */* mmHG Vent. Rate : 111 BPM Atrial Rate : 241 BPM P-R Int : * ms QRS Dur : 154 ms QT Int : 392 ms P-R-T Axes : * -47 48 degrees QTcB Int : 533 ms Atrial flutter with variable A-V block Right bundle branch block Left anterior fascicular block Bifascicular block Abnormal ECG Confirmed by IRIS CULLEN, MAKAYLA ([id number]), acquisition editor WALT LYLES ([id number]) on 07/23/2025 7:30:16 AM Referred By: Confirmed By: MAKAYLA SIMMONS MD
[2025-07-22 14:37] LABS: Hematocrit 38.8 % (40-54); Hemoglobin 12.7 g/dL (13.0-16.5); Immature Granulocytes Count 0.050 X10^3/uL (0.0-0.0); Mean Corp Hgb Conc 32.7 g/dL (32-36); Mean Corpuscular Volume 84.2 fL (80-94); Mean Platelet Vol. 9.3 fl (6.2-12.0); NRBC Flagged by Analyzer 0 % (0-5); Platelet Count 330 K/mm3 (150-450); RBC Distribution Width CV 16.7 % (11.6-14.6); RBC Distribution Width SD 51.0 fl (35.1-43.9); Red Blood Count 4.61 M/mm3 (4.6-6.2); White Blood Count 13.1 K/mm3 (4.4-11.0)
[2025-07-22] MEDS: 0.9% Normal Saline (1000mL) 1,000 ML 999 ML IV (14:39)
[2025-07-22 14:45] LABS: Prothrombin Time (Protime)PT. 14.8 SECONDS (11.7-14.9)
[2025-07-22 14:46] LABS: Partial Thromboplast Time 36.9 Seconds (24.1-36.2)
[2025-07-22 14:49] LABS: Mucous, Urine 0 SEEN /hpf (<or=2+)
[2025-07-22 14:54] LABS: Color, Urine Yellow (Yellow); Glucose, Dipstick Normal (Normal); Ketone-Dipstick 50 mg/dl (Negative); Leukocyte Esterase-Dipstick Negative /ul (Negative); Nitrite-Dipstick Negative (Negative); Occult Blood-Urine Negative /ul (Negative); Protein-Dipstick 30 mg/dl (Negative); Specific Gravity, Urine 1.015 (1.002-1.030); Urine Bilirubin Dipstick Negative (Negative)
--- NOTE | 2025-07-22 15:00 | RAD_ITS ---
PROCEDURE: FEMUR MIN 2 VIEWS 07/22/2025 REASON FOR EXAM: PAIN TECHNIQUE: Procedure Code: RADFEM Modality: DX Procedure: FEMUR MIN 2 VIEWS Laterality: Left femur. COMPARISON: None FINDINGS: Bones: No fracture. Joints: Normal alignment at the hip and knee. Soft tissues: Soft tissues are unremarkable. Other: RAD/Femur Min 2 Views IMPRESSION: NO ACUTE FRACTURE OR DISLOCATION. Reading Location: [place] [id number]
--- NOTE | 2025-07-22 15:00 | RAD_ITS ---
PROCEDURE: FEMUR MIN 2 VIEWS 07/22/2025 REASON FOR EXAM: PAIN TECHNIQUE: Procedure Code: RADFEM Modality: DX Procedure: FEMUR MIN 2 VIEWS Laterality: Right femur COMPARISON: None FINDINGS: Bones: No fracture. Joints: Normal alignment at the hip and knee. Soft tissues: Soft tissues are unremarkable. Other: RAD/Femur Min 2 Views IMPRESSION: NO ACUTE FRACTURE OR DISLOCATION. Reading Location: [place] [id number]
--- NOTE | 2025-07-22 15:00 | RAD_ITS ---
PROCEDURE: CHEST 1 VIEW (PORTABLE) 07/22/2025 REASON FOR EXAM: BODY ACHES TECHNIQUE: Frontal view of the chest. COMPARISON: Prior study dated May 04, 2022. FINDINGS: Hardware: EKG electrodes are seen. Prior midline sternotomy. Heart: Prior midline sternotomy. The heart is nonenlarged. Lungs: Hyperinflation and emphysematous changes. Stable increased markings at the lung bases suggestive of scarring. Bones: Degenerative changes are identified within the thoracic spine. Other: Hiatal hernia. RAD/Chest 1 View (Portable) IMPRESSION: Stable examination. Hyperinflation and mild linear scarring at the lung bases. Reading Location: [place] [address]
[2025-07-22 15:11] LABS: AST(SGOT) 16 U/L (<=37); Alanine Aminotransfer ALT/SGPT 12 U/L (<=46); Albumin, Serum 3.8 g/dL (3.4-4.8); Alkaline Phosphatase 109 U/L (40-129); Anion Gap 11 (5-15); BUN 11 mg/dL (4-19); BUN/Creat Ratio 16.7 RATIO (10-20); Calcium,Total 8.8 mg/dL (7.6-11.0); Carbon Dioxide 21.1 mmol/L (21.0-32.0); Chloride 106 mmol/L (98-108); Estimated Creatinine Clearance 105.60 ml/min (50-250); Globulin 3.1 g/dL (2.2-4.2); Glucose 124 mg/dL (70-99); Potassium 3.7 mmol/L (3.3-5.1)
[2025-07-22 15:18] LABS: Red Blood Cells-Urine 0-5 SEEN /hpf (0-5); Squamous Epithelial Cells - UA 0-5 SEEN /hpf (0-5)
--- NOTE | 2025-07-22 16:22 | EX.ED.DYSGE1 ---
HPI History of Present Illness Chief Complaint: General Illness Narrative Narrative: Patient is a 64-year-old male with a past medical history of prostate cancer with metastasis to the bone, hyperlipidemia, hypertension, thoracic aortic aneurysm, COPD, CAD who presented to the emergency department chief complaint of bilateral leg pain. According to the patient he states that he on Tuesday received a calcium injection for his metastatic prostate cancer to the bone and he was notified by the staff there that he would likely develop flulike symptoms as well as whole body aches and not feeling well. He states that by Tuesday evening he started feeling unwell and notes that on he developed bilateral thigh pain. He states that this was persistent since then and through the weekend and since this has not gotten better he came here to be further evaluated. Patient also noted that he is also feeling very weak overall. [facility] Medical History History of prostate cancer Tobacco use HLD (hyperlipidemia) HTN (hypertension) Thoracic aortic aneurysm COPD (chronic obstructive pulmonary disease) CAD (coronary artery disease) Home Medications ?Medication ?Instructions ?Recorded ?Last Taken ?Type aspirin 81 mg tablet 81 mg PO DAILY heart 11/29/21 05/04/22 08:00 History atorvastatin 20 mg tablet (Lipitor) 20 mg PO QHS cholesterol 11/29/21 05/04/22 08:00 History carvedilol 3.125 mg tablet (Coreg) 3.25 mg PO BID HTN 11/29/21 05/04/22 08:00 History lisinopril 5 mg tablet 5 mg PO DAILY HTN 11/29/21 05/04/22 08:00 History albuterol sulfate 90 mcg/actuation 1 - 2 puff inhalation Q4H PRN PRN 04/12/22 Unknown Rx aerosol inhaler (Ventolin HFA) Wheezing ##1 fluticasone fur. 100 mcg-umeclid 1 inh inhalation DAILY 04/12/22 05/04/22 07:00 History 62.5 mcg-vilant 25 mcg inhalat.powder (Trelegy Ellipta) varenicline tartrate 1 mg tablet 1 tab PO BID 05/04/22 05/04/22 08:00 History furosemide 20 mg tablet (Lasix) 20 mg PO DAILY #30 tabs 07/06/22 Unknown Rx azithromycin 250 mg tablet 250 mg PO DAILY 07/22/25 Unknown History doxepin 100 mg capsule 100 mg PO QHS 07/22/25 Unknown History enzalutamide 80 mg tablet (Xtandi) PO 07/22/25 Unknown History levothyroxine 200 mcg tablet 200 mcg PO DAILY 07/22/25 Unknown History Allergy/AdvReac Type Severity Reaction Status Date / Time acetaminophen (From Vicodin) AdvReac Other Verified 07/22/25 11:49 hydrocodone bitartrate (From AdvReac Other Verified 07/22/25 11:49 Vicodin) Family History Father Prostate cancer Dementia Mother CHF (congestive heart failure) Diabetes Heart disease Surgical History S/P prostatectomy S/P insertion of endovascular thoracic aortic stent graft Social History household members: spouse Smoking Status: Current every day smoker tobacco type: cigarettes alcohol intake: current alcohol intake frequency: holidays/special occasions only substance use type: does not use ROS ROS ED ROS Narrative Constitutional: Denies any fevers, chills, headaches Eyes: Denies double vision Cardiovascular: Denies chest pain denies palpitations Respiratory: Denies coughing wheezing shortness of breath Abdomen: Denies abdominal pain nausea vomit diarrhea : Denies any urinary symptoms Neurological: Denies any numbness, weakness, tingling Musculoskeletal: Complains of bilateral thigh pain as noted above Skin: Denies any rashes or lesions EXAM Physical Exam Narrative Exam Narrative: General: Patient is lying in bed rest comfortably did not appear to be in acute distress Head: Atraumatic, normocephalic Eyes: PERRL bilaterally, EOMI bilaterally, no conjunctival injection noted Neck: Soft, supple, trachea midline Cardiovascular: Patient was tachycardic with an irregular regular rhythm Respiratory: Clear to auscultation bilaterally Abdomen: Soft, nondistended, no tenderness palpation Extremities: +5/5 strength noted in the bilateral lower extremities, radial pulses +2/4 and about extremities, no pedal edema exam Neurological: Patient following commands that he was at [facility] year is 2024 Skin: Warm, dry, intact no rashes or lesions noted Const Vital Signs: 07/22/25 11:47 07/22/25 13:42 07/22/25 14:42 Temperature 97.9 F Temperature Source Oral Pulse Rate 122 H 114 H 106 H Respiratory Rate 18 24 H 15 Blood Pressure 122/90 H 112/91 H 121/97 H Blood Pressure Mean 100 98 105 Pulse Ox 97 99 96 Oxygen Delivery Method Room Air Room Air Room Air 07/22/25 17:00 07/22/25 17:18 Temperature 97.9 F Temperature Source Pulse Rate 99 106 H Respiratory Rate 22 H 22 H Blood Pressure 140/109 H 132/91 H Blood Pressure Mean 119 104 Pulse Ox 100 98 Oxygen Delivery Method Room Air MDM MDM MDM Narrative Medical decision making narrative: Patient is a 64-year-old male who presented to the emergency department chief complaint of generalized not feeling well, bilateral thigh pain after his injection of calcium. On the differential diagnose includes but limited to electrolyte abnormality, hypercalcemia, viral gastroenteritis, electrolyte abnormality. Once workup is obtained reviewed he will be reevaluated. Patient CBC reviewed which showed a leukocytosis of 13,000 he chronically has an elevated white blood count according to previous blood draws, hemoglobin stable 12.7, plate count was 330. Patient's INR was 1.1, PT of 14.8. Patient sodium is 130, potassium: 3.7, creatinine was 0.65. Patient lactic acid less than 1, AST and ALT were 16 and 12 respectively. Patient urinalysis reviewed showed no evidence of infection. Patient's calcium was noted to be normal at 8.8. Patient's EKG showed atrial flutter with variable block with a rate of 111 bpm. He does not have a history of this according to him he is not on any blood thinning medications. I added on a D-dimer and troponin series. Patient's urinalysis reviewed showed no evidence of infection.Patient chest x-ray reviewed by myself by radiology and showed hyperinflation and mild linear scarring at the lung bases. Patient's x-ray of his femurs bilaterally reviewed by myself and by radiology which showed no fracture or dislocations. I went back in again and the patient went to get up and his heart rate immediately went to the 120s again after being in the low 100s and he became visibly short of breath therefore we will discuss case with hospitalist for admission. For new onset atrial flutter and shortness of breath. I discussed case with hospitalist Dr. Burgess who states that she will decide on anticoagulation after evaluating the patient in the emergency department. I notified the patient and significant other of this plan at bedside they are agreeable. Patient's for troponin was normal at 10 and D-dimer was negative. Lab Data Labs: Laboratory Results - last 24 hr 07/22/25 07/22/25 14:25 14:35 WBC 13.1 H RBC 4.61 Hgb 12.7 L Hct 38.8 L MCV 84.2 MCH 27.5 MCHC 32.7 RDW Std Deviation 51.0 H RDW Coeff of Diallo 16.7 H Plt Count 330 MPV 9.3 Immature Gran % (Auto) 0.400 Neut % (Auto) 82.0 H Lymph % (Auto) 8.1 L [place] % (Auto) 8.3 Eos % (Auto) 0.9 Baso % (Auto) 0.3 Absolute Neuts (auto) 10.8 H Absolute Lymphs (auto) 1.06 Nucleated RBC % 0 PT 14.8 INR 1.1 APTT 36.9 H D-Dimer Quant (PE/DVT) 0.27 Sodium 138 Potassium 3.7 Chloride 106 Carbon Dioxide 21.1 Anion Gap 11 BUN 11 Creatinine 0.65 L Estim Creat Clear Calc 105.60 Est GFR (MDRD) Non-Af 104 BUN/Creatinine Ratio 16.7 Glucose 124 H Lactic Acid < 1.0 Calcium 8.8 Total Bilirubin 0.31 AST 16 ALT 12 Alkaline Phosphatase 109 Troponin T High Sens 10 Total Protein 7.0 Albumin 3.8 Globulin 3.1 Albumin/Globulin Ratio 1.2 Urine Color Yellow Urine Clarity Clear Urine pH 6.0 Ur Specific [place] 1.015 Urine Protein 30 H Urine Glucose (UA) Normal Urine Ketones 50 H Urine Occult Blood Negative Urine Nitrite Negative Urine Bilirubin Negative Urine Urobilinogen Normal Ur Leukocyte Esterase Negative Urine RBC 0-5 SEEN Urine WBC 0-5 SEEN Ur Squamous Epith Cells 0-5 SEEN Urine Bacteria 0 SEEN Urine Mucus 0 SEEN Radiography Diagnostic Testing: Clinical Impression(s) from Imaging Studies Chest X-Ray 07/22/25 15:00 IMPRESSION: Stable examination. Hyperinflation and mild linear scarring at the lung bases. Reading Location: [facility]-1 Femur X-Ray 07/22/25 15:00 IMPRESSION: NO ACUTE FRACTURE OR DISLOCATION. Reading Location: [facility]1 Femur X-Ray 07/22/25 15:00 IMPRESSION: NO ACUTE FRACTURE OR DISLOCATION. Reading Location: [facility]1 Discharge Plan Dx/Rx/DC Orders Clinical Impression: Atrial flutter, Generalized weakness, Shortness of breath, Pain in both thighs Disposition Disposition: Acute Care Hospital [facility]
[2025-07-22 16:45] LABS: Troponin T High Sensitivity 10 ng/L (<=22)
[2025-07-22 17:13] LABS: D-Dimer Quantitative (DVT/PE) 0.27 FEU/ug/m (0.27-0.49)
[2025-07-22] MEDS: Nicotine (PBKC) 14 MG Patch TD (17:22)
[2025-07-22 18:20] LABS: Pro- Brain NATRIURETIC PEPTIDE 418 pg/mL (<=900)
--- NOTE | 2025-07-22 18:24 | PCM.HP.STD ---
HPI - General General Date of Admission: 07/22/25 Date of Service: 07/22/25 Chief Complaint: Thigh pain HPI Narrative ROBBY BENNETT, is a 64-year-old male history of hypothyroidism, hypertension, COPD, CAD, history of prostate cancer with mets to the bone presented [facility] ED 07/22/2025 with bilateral leg pain. Reportedly on Tuesday he received calcium injection (appears to and zoledronic acid) for his metastatic prostate cancer and was notified by staff that he would likely develop flulike symptoms and whole body aches and not feeling well. By Tuesday evening he was feeling unwell and on he developed bilateral thigh pain. Has been fairly persistent through the weekend is not improved despite his generalized malaise improving so he came to the ED. Also reports feeling weak overall. In the ED temp 97.9, heart rate initially 122 and downtrended to 99, blood pressure 122/90, respiratory rate 18 pulse ox 97% on room air. CBC with white count 13.1 and hemoglobin 12.7. CMP only notable for glucose of 124, lactic negative, UA not suggestive of UTI. D-dimer negative, troponin negative. Chest x-ray with no acute process, femur x-ray is no acute process. EKG revealed what seemed to be a flutter with variable block. Heart rate would briefly improve and would go up into the 120s and was worse with ambulation. Given patient's aches causing some difficulty with ambulation as well as his elevated heart rate that appeared to be A-fib/flutter hospitalist contacted for admission. Patient evaluated at bedside and reports history as above and that he has bilateral thigh pain that has been persistent, denies any sharp pain but notes is very specifically his thighs and almost feels like a charley horse like a muscle spasm. Denies any chest pain, does have chronic shortness of breath but he does not necessarily think it is worse than usual, no new cough. Denies any fevers. [facility] Medical History History of prostate cancer Tobacco use HLD (hyperlipidemia) HTN (hypertension) Thoracic aortic aneurysm COPD (chronic obstructive pulmonary disease) CAD (coronary artery disease) Home Medications ?Medication ?Instructions ?Recorded ?Last Taken ?Type aspirin 81 mg tablet 81 mg PO DAILY heart 11/29/21 07/22/25 History atorvastatin 20 mg tablet (Lipitor) 20 mg PO QHS cholesterol 11/29/21 07/22/25 History carvedilol 3.125 mg tablet (Coreg) 3.25 mg PO BID HTN 11/29/21 07/22/25 History lisinopril 5 mg tablet 5 mg PO DAILY HTN 11/29/21 07/22/25 History albuterol sulfate 90 mcg/actuation 1 - 2 puff inhalation Q4H PRN PRN 04/12/22 07/22/25 Rx aerosol inhaler (Ventolin HFA) Wheezing ##1 fluticasone fur. 100 mcg-umeclid 1 inh inhalation DAILY 04/12/22 07/22/25 History 62.5 mcg-vilant 25 mcg inhalat.powder (Trelegy Ellipta) acetaminophen 500 mg capsule 1,000 mg PO Q6H PRN fever or pain 07/22/25 07/22/25 History azithromycin 250 mg tablet 250 mg PO DAILY 07/22/25 07/22/25 History doxepin 100 mg capsule 100 mg PO QHS 07/22/25 07/22/25 History enzalutamide 80 mg tablet (Xtandi) 160 mg PO DAILY 07/22/25 07/22/25 History furosemide 20 mg tablet (Lasix) 20 mg PO DAILY PRN weight gain 07/22/25 07/22/25 History 2-4lbs/24h levothyroxine 200 mcg tablet 200 mcg PO DAILY 07/22/25 07/22/25 History multivitamin (Daily Multi-Vitamin 1 tab PO DAILY 07/22/25 07/22/25 History tablet) Allergy/AdvReac Type Severity Reaction Status Date / Time acetaminophen (From Vicodin) AdvReac Other Verified 07/22/25 11:49 hydrocodone bitartrate (From AdvReac Other Verified 07/22/25 11:49 Vicodin) Family History Father Prostate cancer Dementia Mother CHF (congestive heart failure) Diabetes Heart disease Surgical History S/P prostatectomy S/P insertion of endovascular thoracic aortic stent graft Social History household members: spouse Smoking Status: Current every day smoker tobacco type: cigarettes alcohol intake: current alcohol intake frequency: holidays/special occasions only substance use type: does not use ROS ROS Narrative General: Denies fever/chills HENT: Denies headache, denies stuffy nose, denies sore throat EYES: Denies changes in vision Resp: Denies cough, chronic shortness of breath Cardiac: Denies chest pain GI: Denies abdominal pain, denies changes in bowel, vomiting : Denies changes in urination Extremity: Denies swelling MSK: Feels somewhat generally weak, aching in legs Neuro: Denies any numbness/tingling Heme: Denies any bleeding or bruising Skin: Denies rashes Psychiatric: No complaints voiced Vital Signs Vital Signs Vital Signs: 07/22/25 11:47 07/22/25 13:42 07/22/25 14:42 Temperature 97.9 F Temperature Source Oral Pulse Rate 122 H 114 H 106 H Respiratory Rate 18 24 H 15 Blood Pressure 122/90 H 112/91 H 121/97 H Blood Pressure Mean 100 98 105 Pulse Ox 97 99 96 Oxygen Delivery Method Room Air Room Air Room Air 07/22/25 17:00 07/22/25 17:18 Temperature 97.9 F Temperature Source Pulse Rate 99 106 H Respiratory Rate 22 H 22 H Blood Pressure 140/109 H 132/91 H Blood Pressure Mean 119 104 Pulse Ox 100 98 Oxygen Delivery Method Room Air Weight Weight: 96.116 kg Body Mass Index (BMI) 27.1 Physical Exam Narrative General: Alert, oriented, no apparent distress HEENT: Atraumatic, normocephalic Eyes: Anicteric, normal conjunctiva, extraocular movements grossly intact Neck: Supple Respiratory: Scattered wheezes, normal respiratory effort Cardiovascular: Tachycardic with rate in 120s GI: Soft, nontender Extremities: has some areas of tenderness on palpation of thighs but nowhere else Musculoskeletal: Moving all extremities Neuro: No overt focal neurological deficits Skin: No rashes appreciated Psych: Cooperative Results Lab / Micro Data 07/22/25 14:25 07/22/25 14:25 Labs: Laboratory Results - last 24 hr 07/22/25 14:25: WBC 13.1 H, RBC 4.61, Hgb 12.7 L, Hct 38.8 L, MCV 84.2, MCH 27.5, MCHC 32.7, RDW Std Deviation 51.0 H, RDW Coeff of [place]ial[place] 16.7 H, Plt Count 330, MPV 9.3, Immature Gran % (Auto) 0.400, Neut % (Auto) 82.0 H, Lymph % (Auto) 8.1 L, [place] % (Auto) 8.3, Eos % (Auto) 0.9, Baso % (Auto) 0.3, Absolute Neuts (auto) 10.8 H, Absolute Lymphs (auto) 1.06, Nucleated RBC % 0, PT 14.8, INR 1.1, APTT 36.9 H, D-Dimer Quant (PE/DVT) 0.27, Sodium 138, Potassium 3.7, Chloride 106, Carbon Dioxide 21.1, Anion Gap 11, BUN 11, Creatinine 0.65 L, Estim Creat Clear Calc 105.60, Est GFR (MDRD) Non-Af 104, BUN/Creatinine Ratio 16.7, Glucose 124 H, Lactic Acid < 1.0, Calcium 8.8, Total Bilirubin 0.31, AST 16, ALT 12, Alkaline Phosphatase 109, Troponin T High Sens 10, NT pro BNP II 418, Total Protein 7.0, Albumin 3.8, Globulin 3.1, Albumin/Globulin Ratio 1.2 07/22/25 14:35: Urine Color Yellow, Urine Clarity Clear, Urine pH 6.0, Ur Specific [place] 1.015, Urine Protein 30 H, Urine Glucose (UA) Normal, Urine Ketones 50 H, Urine Occult Blood Negative, Urine Nitrite Negative, Urine Bilirubin Negative, Urine Urobilinogen Normal, Ur Leukocyte Esterase Negative, Urine RBC 0-5 SEEN, Urine WBC 0-5 SEEN, Ur Squamous Epith Cells 0-5 SEEN, Urine Bacteria 0 SEEN, Urine Mucus 0 SEEN Imaging Radiology Impression Chest X-Ray 07/22/25 15:00 IMPRESSION: Stable examination. Hyperinflation and mild linear scarring at the lung bases. Reading Location: [facility] Femur X-Ray 07/22/25 15:00 IMPRESSION: NO ACUTE FRACTURE OR DISLOCATION. Reading Location: [facility]1 Femur X-Ray 07/22/25 15:00 IMPRESSION: NO ACUTE FRACTURE OR DISLOCATION. Reading Location: [facility] Assessment & Plan Assessment/Plan (1) Pain in both thighs: (2) Atrial flutter: PLAN: Plan #Leg aching and weakness -Started after his alendronate infusion but is not improving -Bilateral femur x-rays no acute process -Gentle IV fluids -Will check CK, mag, Phos -TSH within normal limits -Check influenza and resp panel -PT/OT -Supportive care - It is possible this is still an adverse reaction but ruling out other etiologies as above - Pain is muscle aches, no sharp pain down back of legs or focal complaints would be concerning for spinal pathology # New onset A-fib/flutter -EKG read as a flutter with variable block - Increase home Coreg -Obtain echocardiogram -Will check magnesium and Phos -TSH 2.57 -Elevated [id number], Eliquis ordered # Metastatic prostate cancer -On home Xtandi -Follows with Dr. Aaron #Hx COPD - Ipratropium nebs and budesonide -Holding off on albuterol component given patient's hypertension -Incentive spirometer #Hypothyroidism -Continue Synthroid #Hx of CAD -Continue home aspirin and statin #Tobacco use -Advise cessation -Nicotine replacement available if desired #DVT ppx: Eliquis as above Berta Burgess MD Charges/Coding Visit Charges Inpatient E&M: 21638 Init Hosp L2
[2025-07-22 18:30] LABS: Free T3 2.0 pg/mL (2.18-3.98)
[2025-07-22 18:56] LABS: Troponin T High Sens 2 HR 12 ng/L (<=22)
--- NOTE | 2025-07-22 19:17 | ECHOD_ITS ---
Reason For Study Reason For Study: NEW ONSET AFLUTTER Procedure This was a 2D Doppler, Color Flow transthoracic echocardiogram. Exam performed portable in patient room. Left Ventricle Normal LV size. The left ventricular ejection fraction is 50 %. No regional wall motion abnormalities noted. Right Ventricle Moderately dilated right ventricle. Mild global right ventricular systolic dysfunction. Atria Normal left atrium. Normal right atrium. Mitral Valve Normal mitral valve. Tricuspid Valve Normal tricuspid valve. Mild tricuspid valve insufficiency. Pulmonary artery systolic pressure is 26 mmHg. Aortic Valve Normal aortic valve. Pulmonic Valve Normal pulmonic valve. Great Vessels Normal aortic root. The pulmonary artery is normal size. Inferior vena cava collapse with respiration. Pericardium/Pleural No pericardial effusion. MMode/2D Measurements & Calculations LVIDd: 4.2 cm IVSd: 1.3 cm LVOT diam: 2.5 cm LVIDs: 2.5 cm LVPWd: 1.3 cm LVOT area: 5.1 cm2 RVDd: 4.6 cm FS: 40.9 % asc Aorta Diam: 3.2 cm LAV(MOD-bp): 46.7 ml LVAd ap4: 19.5 cm2 LAV(MOD-bp) Indexed: 20.9 ml/m2 LVLd ap4: 7.2 cm LAV(MOD-sp2): 52.5 ml EDV(MOD-sp4): 43.9 ml LAV(MOD-sp4): 40.2 ml EDV(sp4-el): 44.9 ml LVAs ap4: 12.2 cm2 LVLs ap4: 6.2 cm ESV(MOD-sp4): 20.8 ml ESV(sp4-el): 20.4 ml EF(MOD-sp4): 52.6 % EF(sp4-el): 54.6 % LVAd ap2: 22.3 cm2 SV(MOD-sp4): 23.1 ml SV(MOD-sp2): 27.4 ml LVLd ap2: 7.2 cm SI(MOD-sp4): 10.4 ml/m2 SI(MOD-sp2): 12.3 ml/m2 EDV(MOD-sp2): 55.4 ml EDV(sp2-el): 58.2 ml LVAs ap2: 14.9 cm2 LVLs ap2: 6.3 cm ESV(MOD-sp2): 28.0 ml ESV(sp2-el): 29.6 ml EF(MOD-sp2): 49.5 % SV(sp4-el): 24.5 ml Ao sinus diam: 3.[address] Junction: 2.9 cm LA dimension(2D): 4.3 cm LA A4 area: 16.7 cm2 RA A4 area: 14.3 cm2 TAPSE: 1.5 cm Time Measurements MV dec time: 0.12 sec Doppler Measurements & Calculations MV E max kay: 87.6 cm/sec Ao V2 max: 104.7 cm/sec LV V1 max: 98.3 cm/sec Ao max P.4 mmHg LV V1 max P.9 mmHg Ao V2 mean: 80.4 cm/sec LV V1 mean P.1 mmHg Ao mean P.7 mmHg LV V1 mean: 67.4 cm/sec Ao V2 VTI: 17.3 cm LV V1 VTI: 16.1 cm AV (velocity ratio): 0.93 VITALY(I,D): 4.7 cm2 VITALY(V,D): 4.8 cm2 SV(LVOT): 81.8 ml PA V2 max: 61.2 cm/sec TR max kay: 241.3 cm/sec TR max P.4 mmHg ECHO/Echo Complete Interpretation Summary Normal LV size. The left ventricular ejection fraction is 50 %. Moderately dilated right ventricle. Pulmonary artery systolic pressure is 26 mmHg. Ordering Physician: Berta Burgess Performed By: Tianna Jansen RDCS
[2025-07-22] MEDS: DOXEPIN HCL 50 MG CAPSULE 100 MG PO (20:22)
[2025-07-22] MEDS: APIXABAN 5 MG TABLET PO (20:22)
[2025-07-22 20:41] LABS: Troponin T High Sens 4 HR 8 ng/L (<=22)
[2025-07-22] MEDS: 0.9% Normal Saline (1000mL) 1,000 ML 50 ML IV (20:43)
[2025-07-22 20:49] LABS: CPK Total, Creatine Kinase 43 U/L (24-195)
[2025-07-22] MEDS: Potassium Phosphate 30 MM in 0.9% Normal Saline (250mL Bag) 250 ML 55 MM IV (21:57)
[2025-07-23] VITALS (13 sets, daily range): BP systolic 108–148; BP diastolic 81–110; PULSE 91–126; RESP 18–20; TEMP 36.2–36.9; O2SAT 90–97
[2025-07-23] MEDS: Ipratropium 0.5 MG/2.5 ML SOLUTION INHALATION ×4 (00:02→20:34)
[2025-07-23] MEDS: Budesonide Respules 0.5 MG/2 ML AMPUL.NEB. INHALATION ×3 (00:02→20:34)
[2025-07-23 05:28] LABS: Hematocrit 35.8 % (40-54); Hemoglobin 11.7 g/dL (13.0-16.5); Immature Granulocytes Count 0.040 X10^3/uL (0.0-0.0); Mean Corp Hgb Conc 32.7 g/dL (32-36); Mean Corpuscular Volume 85.2 fL (80-94); Mean Platelet Vol. 9.3 fl (6.2-12.0); NRBC Flagged by Analyzer 0 % (0-5); Platelet Count 305 K/mm3 (150-450); RBC Distribution Width CV 16.5 % (11.6-14.6); RBC Distribution Width SD 51.8 fl (35.1-43.9); Red Blood Count 4.20 M/mm3 (4.6-6.2); White Blood Count 9.4 K/mm3 (4.4-11.0)
[2025-07-23 06:34] LABS: Anion Gap 11 (5-15); BUN 9 mg/dL (4-19); BUN/Creat Ratio 14.6 RATIO (10-20); Calcium,Total 8.0 mg/dL (7.6-11.0); Carbon Dioxide 19.8 mmol/L (21.0-32.0); Chloride 108 mmol/L (98-108); Estimated Creatinine Clearance 105.60 ml/min (50-250); Glucose 101 mg/dL (70-99); Magnesium 2.3 mg/dL (1.5-2.2); Potassium 4.2 mmol/L (3.3-5.1)
[2025-07-23] MEDS: APIXABAN 5 MG TABLET PO ×2 (07:59→21:45)
[2025-07-23] MEDS: Aspirin E.C. 81 MG Tablet PO (07:59)
[2025-07-23] MEDS: Nicotine (PBKC) 14 MG Patch TD (07:59)
--- NOTE | 2025-07-23 08:31 | PN.HOSP_ITS ---
Reason for Visit Chief Complaint: Thigh pain Subjective Subjective Patient states his thigh pain is better with the Toradol. We did discuss some short-term NSAID such as Celebrex and the reasons we would not use it long-term specially with anticoagulation. Patient voiced understanding. Objective Data Objective Data Vital Signs: Vital Signs Temp Pulse Resp BP Pulse Ox O2 Del Method 97.5 F L 122 H 20 H 137/110 H 97 Room Air 07/23/25 07:52 07/23/25 07:52 07/23/25 07:52 07/23/25 07:52 07/23/25 07:52 07/23/25 07:52 Oxygen Delivery Method Room Air Weight: 96.162 kg Body Mass Index (BMI) 27.2 Intake & Output: Intake and Output for Last 24 Hours 07/21/25 07/22/25 07/23/25 23:59 23:59 23:59 Intake Total 1000 / 1000 410 / 410 Balance 1000 / 1000 410 / 410 Lab / Micro Data 07/23/25 05:13 07/23/25 05:13 Labs: Laboratory Results - last 24 hr 07/22/25 14:25: WBC 13.1 H, RBC 4.61, Hgb 12.7 L, Hct 38.8 L, MCV 84.2, MCH 27.5, MCHC 32.7, RDW Std Deviation 51.0 H, RDW Coeff of Diallo 16.7 H, Plt Count 330, MPV 9.3, Immature Gran % (Auto) 0.400, Neut % (Auto) 82.0 H, Lymph % (Auto) 8.1 L, [place] % (Auto) 8.3, Eos % (Auto) 0.9, Baso % (Auto) 0.3, Absolute Neuts (auto) 10.8 H, Absolute Lymphs (auto) 1.06, Nucleated RBC % 0, PT 14.8, INR 1.1, APTT 36.9 H, D-Dimer Quant (PE/DVT) 0.27, Sodium 138, Potassium 3.7, Chloride 106, Carbon Dioxide 21.1, Anion Gap 11, BUN 11, Creatinine 0.65 L, Estim Creat Clear Calc 105.60, Est GFR (MDRD) Non-Af 104, BUN/Creatinine Ratio 16.7, Glucose 124 H, Lactic Acid < 1.0, Calcium 8.8, Total Bilirubin 0.31, AST 16, ALT 12, Alkaline Phosphatase 109, Troponin T High Sens 10, NT pro BNP II 418, Total Protein 7.0, Albumin 3.8, Globulin 3.1, Albumin/Globulin Ratio 1.2, TSH 2.570, F ree T4 1.70 H, Free T3 pg/dL 2.0 L 07/22/25 14:35: Urine Color Yellow, Urine Clarity Clear, Urine pH 6.0, Ur Specific [place] 1.015, Urine Protein 30 H, Urine Glucose (UA) Normal, Urine Ketones 50 H, Urine Occult Blood Negative, Urine Nitrite Negative, Urine Bilirubin Negative, Urine Urobilinogen Normal, Ur Leukocyte Esterase Negative, Urine RBC 0-5 SEEN, Urine WBC 0-5 SEEN, Ur Squamous Epith Cells 0-5 SEEN, Urine Bacteria 0 SEEN, Urine Mucus 0 SEEN 07/22/25 17:57: Phosphorus 1.4 L*, Total Creatine Kinase 43, Troponin T Hi Sens 2 Hr 12 07/22/25 19:56: Troponin T Hi Sens 4Hr 8 07/23/25 05:13: WBC 9.4, RBC 4.20 L, Hgb 11.7 L, Hct 35.8 L, MCV 85.2, MCH 27.9, MCHC 32.7, RDW Std Deviation 51.8 H, RDW Coeff of D[place]lo 16.5 H, Plt Count 305, MPV 9.3, Immature Gran % (Auto) 0.400, Neut % (Auto) 74.1 H, Lymph % (Auto) 13.7 L, [place] % (Auto) 9.9, Eos % (Auto) 1.5, Baso % (Auto) 0.4, Absolute Neuts (auto) 7.0, Absolute Lymphs (auto) 1.29, Nucleated RBC % 0, Sodium 138, Potassium 4.2, Chloride 108, Carbon Dioxide 19.8 L, Anion Gap 11, BUN 9, Creatinine 0.62 L, Estim Creat Clear Calc 105.60, Est GFR (MDRD) Non-Af 105, BUN/Creatinine Ratio 14.6, Glucose 101 H, Calcium 8.0, Magnesium 2.3 H Micro: Microbiology 07/22/25 23:50 Mucosa - Nasopharyngeal Respiratory Panel (PCR) - Final 07/22/25 23:50 Nasal Secretion SARS-CoV-2 Antigen (Rapid) - Final Radiography Diagnostic Testing: Radiology Impression Chest X-Ray 07/22/25 15:00 IMPRESSION: Stable examination. Hyperinflation and mild linear scarring at the lung bases. Reading Location: [facility] Femur X-Ray 07/22/25 15:00 IMPRESSION: NO ACUTE FRACTURE OR DISLOCATION. Reading Location: [facility]-1 Femur X-Ray 07/22/25 15:00 IMPRESSION: NO ACUTE FRACTURE OR DISLOCATION. Reading Location: [facility]- Physical Exam Const alert, oriented x3, no apparent distress and well nourished Constitutional Narrative: Pleasant, appropriately age, white male, sitting up in bed, appears comfortable, nontoxic HEENT head/scalp atraumatic and moist oral mucous membranes HEENT Narrative: Mallampati 3, no thrush Head and Scalp: normocephalic Resp normal respiratory effort, no retractions, no use of accessory muscles and clear to auscultation bilaterally Auscultation: Negative for rales, rhonchi or wheezes Cardio regular rate, regular rhythm, S1 normal heart sound, S2 normal heart sound, no murmurs, no rub and no gallops; Negative for no clicks Cardio Narrative: Click noted over right upper sternal border in the area of aortic valve GI normal to inspection, nondistended, normoactive bowel sounds, soft to palpation and non-tender Extremity no clubbing, cyanosis or edema Extremity Narrative: 2+ pedal pulses Neuro moves all extremities and no focal motor deficits Psych affect normal Psych Narrative: Very pleasant, interacts appropriately Assessment & Plan Assessment/Plan (1) Pain in both thighs: (2) Generalized weakness: (3) Atrial flutter: PLAN: Plan Leg aching and weakness -Started after his alendronate infusion but is not improving -Bilateral femur x-rays no acute process - Labs are unremarkable - Patient given Toradol IV x 1 with good resolution of symptoms for some time -Suspect this is related to his alendronate infusion and will give Celebrex 100 mg twice daily for 5 days at discharge if continues to be an ongoing problem with a PPI for GI protection given the fact we do need to start anticoagulation for his new onset A-fib -Highly recommend against long-term NSAID use given his need for ongoing anticoagulation -influenza and resp panel are unremarkable -PT/OT -Patient was able to move independently after Toradol New onset A-fib/flutter -Telemetry remains stable but heart rates are improved -Continue increased dose of Coreg -Echocardiogram shows an EF of 50% with a mildly dilated RV and pulmonary systolic pressure of 26 mmHg -Patient does have an audible click on exam in the area of the aortic valve but no valvular abnormalities were noted on echo - Continue Eliquis 5 mg p.o. twice daily - Patient follows up with [facility] cardiology but has difficulty getting in we will consider following up with [place] [facility] and let me know tomorrow Hypophosphatemia - Phos replaced Metastatic prostate cancer -On home Xtandi -Follows with Dr. Aaron CAD/essential hypertension/hyperlipidemia - Continue aspirin - Continue atorvastatin - continue carvedilol increased dose - Home diuretic on hold - Hold lisinopril with increased beta-blockade COPD - Ipratropium nebs and budesonide - Continue home azithromycin - Incentive spirometer - Restart inhalers at discharge Hypothyroidism -Continue Synthroid Hx of CAD -Continue home aspirin and statin Tobacco use -Advise cessation -Nicotine replacement available if desired Insomnia - Continue doxepin DVT prophylaxis - Eliquis as above CODE STATUS - DNR with no intubation Charges/Coding Visit Charges Inpatient E&M: 56866 Subs Hosp L2
--- NOTE | 2025-07-23 09:53 | EKG12_ITS ---
Test Reason : CHANGE Blood Pressure : */* mmHG Vent. Rate : 96 BPM Atrial Rate : 245 BPM P-R Int : * ms QRS Dur : 158 ms QT Int : 428 ms P-R-T Axes : * -54 21 degrees QTcB Int : 540 ms Atrial flutter with variable A-V block Right bundle branch block Left anterior fascicular block Bifascicular block Abnormal ECG When compared with ECG of 22-Jul-2025 14:39, No significant change was found Confirmed by IRIS CULLEN, MAKAYLA ([id number]), television news video editor GERMÁN DE LA CRUZ ([id number]) on 07/23/2025 1:49:24 PM Referred By: Confirmed By: MAKAYLA SIMMONS MD
[2025-07-23] MEDS: Sodium Phosphate/Na Biphos 45 MMOL in 0.9% Normal Saline (500mL Bag) 500 ML 85 MMOL IV (10:08)
[2025-07-23] MEDS: ENZALUTAMIDE 80 MG TABLET 160 MG PO (10:33)
--- NOTE | 2025-07-23 11:20 | CASEMGMT ---
RN CM Face to Face with patient for initial transition planning/care coordination assessment. RN CM introduced self and role at [facility]. Patient lying in bed, alert and oriented. Patient willing to participate in assessment and is able to answer all questions appropriately. Care providers, pharmacy, and demographics verified. Strata: 2 PCP: [facility] Specialists: Blessing, waste duster; Sage oncologist Preferred Pharmacy: [facility] Insurance: [employer] Prescription Benefit: yes Living Will/HPOA: none LNOK: Living Arrangements: Patient lives with in a single story home with no steps to enter the home. Patient is independent at home. Transportation: self, DME/HHC: Patient denies DME in home. No previous HHC or SNF Patient wishes to discharge home, denies need for home health at this time. Patient states he has no further needs or concerns at this time. CM to follow for discharge planning needs that may arise. Disposition Plan: Patient to discharge home with family support and follow up plans in place. Africa MORA, RN, CM
[2025-07-23] MEDS: 0.9% Saline Lock 10 ML Syringe IV (21:00)
[2025-07-23] MEDS: DOXEPIN HCL 50 MG CAPSULE 100 MG PO (21:45)
[2025-07-23] MEDS: MELATONIN 10 MG TABLET PO (21:51)
[2025-07-24] VITALS (7 sets, daily range): BP systolic 102–144; BP diastolic 79–107; PULSE 83–109; RESP 16–18; TEMP 35.9–36.6; O2SAT 93–98
[2025-07-24] MEDS: Ipratropium 0.5 MG/2.5 ML SOLUTION INHALATION ×2 (07:25→13:29)
[2025-07-24] MEDS: Budesonide Respules 0.5 MG/2 ML AMPUL.NEB. INHALATION (07:25)
[2025-07-24] MEDS: Aspirin E.C. 81 MG Tablet PO (09:04)
[2025-07-24] MEDS: APIXABAN 5 MG TABLET PO (09:05)
[2025-07-24] MEDS: Nicotine (PBKC) 14 MG Patch TD (09:05)
[2025-07-24] MEDS: ENZALUTAMIDE 80 MG TABLET 160 MG PO (09:05)
--- NOTE | 2025-07-24 12:20 | PCM.DC.SUM ---
Providers Date of Admission: 07/22/25 Date of Discharge: 07/24/25 Primary Care Physician: Dr. Chad Hennessy MD Consultations 07/24/25 11:23 Consult: Cardiology Routine Consulting Provider: Herson Parra Reason for Consult: New A-Flutter EMERGENT Consult: No MD Notified: Yes Date Notified: 07/24/25 Time Notified: 11:24 Method of Notification: Text Reason For Visit: NEW A FLUTTER, FLANK PAIN, SHORTNESS OF BREATH Diagnosis Discharge Diagnosis (1) Pain in both thighs: Status: Acute Code(s): M79.651 - Pain in right thigh; M79.652 - Pain in left thigh (2) Generalized weakness: Status: Acute Code(s): R53.1 - Weakness (3) Atrial flutter: Status: Acute Code(s): I48.92 - Unspecified atrial flutter Plan Leg aching and weakness -Started after his alendronate infusion but is not improving -Bilateral femur x-rays no acute process - Labs are unremarkable - Patient given Toradol IV x 1 with good resolution of symptoms for some time -Suspect this is related to his alendronate infusion and will give Celebrex 100 mg twice daily for 5 days at discharge if continues to be an ongoing problem with a PPI for GI protection given the fact we do need to start anticoagulation for his new onset A-fib -Highly recommend against long-term NSAID use given his need for ongoing anticoagulation -influenza and resp panel are unremarkable -PT/OT -Patient was able to move independently after Toradol New onset A-fib/flutter -Telemetry remains stable but heart rates are improved -Continue increased dose of Coreg -Echocardiogram shows an EF of 50% with a mildly dilated RV and pulmonary systolic pressure of 26 mmHg -Patient does have an audible click on exam in the area of the aortic valve but no valvular abnormalities were noted on echo - Continue Eliquis 5 mg p.o. twice daily - Patient follows up with [facility] cardiology but has difficulty getting in we will consider following up with [facility] and let me know tomorrow Hypophosphatemia - Phos replaced Metastatic prostate cancer -On home Xtandi -Follows with Dr. Aaron CAD/essential hypertension/hyperlipidemia - Continue aspirin - Continue atorvastatin - continue carvedilol increased dose - Home diuretic on hold - Hold lisinopril with increased beta-blockade COPD - Ipratropium nebs and budesonide - Continue home azithromycin - Incentive spirometer - Restart inhalers at discharge Hypothyroidism -Continue Synthroid Hx of CAD -Continue home aspirin and statin Tobacco use -Advise cessation -Nicotine replacement available if desired Insomnia - Continue doxepin DVT prophylaxis - Eliquis as above CODE STATUS - DNR with no intubation Medications at Discharge Home Medications aspirin 81 mg tablet 81 mg PO DAILY heart 11/29/21 atorvastatin 20 mg tablet (Lipitor) 20 mg PO QHS cholesterol 11/29/21 lisinopril 5 mg tablet 5 mg PO DAILY HTN 11/29/21 albuterol sulfate 90 mcg/actuation aerosol inhaler (Ventolin HFA) 1 - 2 puff inhalation Q4H PRN PRN Wheezing ##1 04/12/22 fluticasone fur. 100 mcg-umeclid 62.5 mcg-vilant 25 mcg inhalat.powder (Trelegy Ellipta) 1 inh inhalation DAILY 04/12/22 acetaminophen 500 mg capsule 1,000 mg PO Q6H PRN fever or pain 07/22/25 azithromycin 250 mg tablet 250 mg PO DAILY 07/22/25 doxepin 100 mg capsule 100 mg PO QHS 07/22/25 enzalutamide 80 mg tablet (Xtandi) 160 mg PO DAILY 07/22/25 furosemide 20 mg tablet (Lasix) 20 mg PO DAILY PRN weight gain 2-4lbs/24h 07/22/25 levothyroxine 200 mcg tablet 200 mcg PO DAILY 07/22/25 multivitamin (Daily Multi-Vitamin tablet) 1 tab PO DAILY 07/22/25 apixaban 5 mg tablet (Eliquis) 5 mg PO BID #60 tabs 07/24/25 celecoxib 100 mg capsule 100 mg PO BID #14 caps 07/24/25 metoprolol tartrate 100 mg tablet 100 mg PO BID #60 tabs 07/24/25 pantoprazole 40 mg tablet,delayed release (Protonix) 40 mg PO DAILY #7 tabs 07/24/25 Hospital Course Procedures 2-D Echocardiogram, EKG and - (Chest x-ray/femoral x-ray x 2) Summary of Care Provided Minutes Spent on Discharge: 37 Hospital Course: Mr. Roberts is a 64-year-old white male with a history of metastatic prostate cancer to the bone who received zoledronic acid Tuesday prior to presentation for his metastatic prostate disease and had subsequent bilateral lower extremity aching. He was notified after the injection he may develop flulike symptoms and bodyaches and general malaise. He states he did have symptoms such as this and then developed bilateral thigh pain that was fairly persistent through the weekend and not improving. He also felt weak overall. He came to the emergency department and vital signs showed a temperature of 97.9, heart rate 122, blood pressure is 122/90, respiratory rate 18 and pulse ox was 97% on room air. CBC showed a mild leukocytosis with a white count of 13.1 but was otherwise unremarkable. CHEM panel was overtly unremarkable. Lactic acid was unremarkable. UA was unremarkable. D-dimer was unremarkable. Troponin was negative. Bilateral femoral x-rays were negative. Chest x-ray was unremarkable. EKG showed atrial flutter with variable block. Heart rate would intermittently go into the 120s and was worse with ambulation. Given his thigh pain and his new onset atrial flutter with intermittent tachycardia he was admitted to the PCU for further workup. He is on Coreg at baseline and initially his Coreg was uptitrated however ultimately we discontinued his Coreg and placed him on metoprolol 100 mg p.o. twice daily to improve his heart rate control. He did remain in atrial flutter. He does have a history of tobacco abuse with COPD. TSH was normal. An echocardiogram was performed and showed an EF of 50% with a moderately dilated RV and a pulmonary systolic pressure 26 mmHg. With this transition to metoprolol his heart rates improved considerably and were in the 70s to 80s for the most part. However, he did remain in atrial flutter/fib at the time of discharge. We gave him a trial dose of Toradol for his leg pain and it worked dramatically. We transition to Celebrex and at discharge gave him 100 mg twice daily for 7 days. He is to take Protonix with this for stomach protection and stop and then after 7 days. We did discuss ongoing NSAID use is problematic given his anticoagulation and patient voiced understanding. He got dramatic improvement with NSAIDs and his thigh pain and was able to be functional however. I do feel that this is likely related to zoledronic acid infusion. Patient is uncertain at this time if he is going to follow-up with this and he more after discharge. He traditionally follows with cardiology over at [facility] however he states his appointments regularly get canceled and he is asked to follow-up with our cardiology services. An appointment was made prior to discharge for July. Prescriptions for his metoprolol, Eliquis, short course of Protonix and Celebrex were sent to his local pharmacy prior to discharge. The patient was discharged in stable condition on 07/24/2025. Discharge diagnoses: Bilateral thigh pain secondary to zoledronic acid infusion Generalized weakness-improved New onset atrial flutter Hypophosphatemia-replaced Metastatic prostate cancer CAD Essential hypertension Hyperlipidemia Hypothyroidism Tobacco abuse Insomnia Physical Exam Const alert, oriented x3, no apparent distress, average body habitus, no limitations and well nourished Constitutional Narrative: Pleasant, upper middle-aged, white male, sitting up in bed, appears comfortable, nontoxic General Appearance: cooperative, comfortable, well kempt and well developed Exam Limitations: no limitations Nutritional Appearance: overweight HEENT normocephalic, head/scalp atraumatic and moist oral mucous membranes HEENT Narrative: Mild hearing loss, Mallampati 2-3, no thrush Eyes conjunctivae normal Eyes Narrative: No scleral icterus Neck supple Neck Narrative: Trachea midline Resp normal respiratory effort, no retractions, no use of accessory muscles and clear to auscultation bilaterally Auscultation: Negative for rales, rhonchi or wheezes Cardio regular rate, S1 normal heart sound, S2 normal heart sound, no murmurs, no rub and no gallops; Negative for no clicks Cardio Narrative: Click noted over right upper sternal border, rhythm is irregularly irregular but rate is controlled GI normal to inspection, nondistended, normoactive bowel sounds, soft to palpation and non-tender Extremity no clubbing, cyanosis or edema Extremity Narrative: 2+ pedal pulses Skin skin turgor normal, no jaundice, no petechiae and no mottling Neuro moves all extremities and no focal motor deficits Speech: speech normal Psych affect normal Psych Narrative: Very pleasant, interacts appropriately Weight / BMI Weight Weight: 96.162 kg Body Mass Index (BMI) 27.2 ABG / Lab / Microbiology Data 07/23/25 05:13 07/23/25 05:13 Microbiology: Microbiology 07/22/25 14:35 Urine, Clean Catch Urine Culture - Final Culture exhibits no growth. 07/22/25 23:50 Mucosa - Nasopharyngeal Respiratory Panel (PCR) - Final 07/22/25 23:50 Nasal Secretion SARS-CoV-2 Antigen (Rapid) - Final D/C Instructions DC O2, CPAP, BIPAP Needs Home O2 Discharge instructions: No Meaningful Use Info Meaningful Use Meaningful Use Diagnoses (Choose all that apply): None applicable Discharge Plan Admission Admit Date/Time: 07/22/25 18:24 Primary Reason for Your Visit: Leg Pain Attending Provider: Namita Roque Primary Care Provider: Chad Hennessy Consulting Providers: Berta Burgess; Herson Parra Discharge Orders/Prescriptions Prescriptions: New Eliquis 5 mg Tablet 5 mg PO BID Qty: 60 2RF celecoxib 100 mg Capsule 100 mg PO BID Qty: 14 0RF metoprolol tartrate 100 mg Tablet 100 mg PO BID Qty: 60 2RF pantoprazole [Protonix] 40 mg tablet,delayed release (DR/EC) 40 mg PO DAILY Qty: 7 0RF Rx Instructions: Please take while you are on Celebrex Continued atorvastatin [Lipitor] 20 mg tablet 20 mg PO QHS Patient Comments: take 1 tablet by mouth once daily lisinopril 5 mg tablet 5 mg PO DAILY Patient Comments: take 1 tablet by mouth once daily aspirin 81 mg Tablet 81 mg PO DAILY Trelegy Ellipta 100-62.5-25 mcg blister with device 1 inh INHALATION DAILY albuterol sulfate [Ventolin HFA] 1 INHALER inhaler 1 - 2 puff inhalation Q4H PRN PRN (Reason: Wheezing) Qty: 1 0RF azithromycin 250 mg tablet 250 mg PO DAILY doxepin 100 mg capsule 100 mg PO QHS levothyroxine 200 mcg tablet 200 mcg PO DAILY Xtandi 80 mg tablet 160 mg PO DAILY multivitamin [Daily Multi-Vitamin] Tablet 1 tab PO DAILY acetaminophen 500 mg capsule 1,000 mg PO Q6H PRN (Reason: fever or pain) furosemide [Lasix] 20 mg tablet 20 mg PO DAILY PRN (Reason: weight gain 2-4lbs/24h ) Discontinued carvedilol [Coreg] 3.125 mg tablet 3.25 mg PO BID Patient Comments: take 1 tablet by mouth twice a day Referrals / Follow Up: Chad Hennessy MD [Primary Care Provider, Family Practice] - Within 2 Weeks Disposition Disposition (needs filled in before D/C Order can be placed): Home, Self Care Charges/Coding Visit Charges Inpatient E&M: 56266 Disch Hosp >30min
--- NOTE | 2025-07-24 13:22 | PHA.DC.COU.R ---
Pharmacy [facility] has performed discharge medication counseling for this patient. The patient was counseled on the following discharge medications and changes in medications for homegoing review. - Celecoxib 100 mg capsule, Apixaban 5 mg tablet, Metoprolol tartrate 100 mg tablet, Pantoprazole 40 mg tablet, Carvedilol 3.125 mg tablet (STOP) The Reason for Use, instructions for use, and potential side effects were reviewed for all new medications. The patient's questions regarding all of their medications were answered. The patient was able to verbally demonstrate an understanding of their discharge medications. Medications at Discharge Home Medications aspirin 81 mg tablet 81 mg PO DAILY heart 11/29/21 atorvastatin 20 mg tablet (Lipitor) 20 mg PO QHS cholesterol 11/29/21 lisinopril 5 mg tablet 5 mg PO DAILY HTN 11/29/21 albuterol sulfate 90 mcg/actuation aerosol inhaler (Ventolin HFA) 1 - 2 puff inhalation Q4H PRN PRN Wheezing ##1 04/12/22 fluticasone fur. 100 mcg-umeclid 62.5 mcg-vilant 25 mcg inhalat.powder (Trelegy Ellipta) 1 inh inhalation DAILY 04/12/22 acetaminophen 500 mg capsule 1,000 mg PO Q6H PRN fever or pain 07/22/25 azithromycin 250 mg tablet 250 mg PO DAILY 07/22/25 doxepin 100 mg capsule 100 mg PO QHS 07/22/25 enzalutamide 80 mg tablet (Xtandi) 160 mg PO DAILY 07/22/25 furosemide 20 mg tablet (Lasix) 20 mg PO DAILY PRN weight gain 2-4lbs/24h 07/22/25 levothyroxine 200 mcg tablet 200 mcg PO DAILY 07/22/25 multivitamin (Daily Multi-Vitamin tablet) 1 tab PO DAILY 07/22/25 apixaban 5 mg tablet (Eliquis) 5 mg PO BID #60 tabs 07/24/25 celecoxib 100 mg capsule 100 mg PO BID #14 caps 07/24/25 metoprolol tartrate 100 mg tablet 100 mg PO BID #60 tabs 07/24/25 pantoprazole 40 mg tablet,delayed release (Protonix) 40 mg PO DAILY #7 tabs 07/24/25
--- NOTE | 2025-07-24 14:11 | CASEMGMT ---
Patient has order for discharge. Patient discharging on JESSICA Lennon CM called [facility], copay is $0. RN CM in to discuss needs at discharge. Patient denies needs or help at discharge. Patient had no further questions or concerns.
== END 2025-07-24 14:41 | disposition home or self-care (01) | DRG 309 ==
LOC: ED 17:25 → PCU 18:29
PROVIDERS: Admitting Provider Internal Medicine; Emergency Provider Emergency Medicine; PCP Family Medicine; Visit Provider Internal Medicine
DX: I48.92 Unspecified atrial flutter (principal); C79.51 Secondary malignant neoplasm of bone; Z66 Do not resuscitate; J44.9 Chronic obstructive pulmonary disease, unspecified; I10 Essential (primary) hypertension; I71.20 Thoracic aortic aneurysm, without rupture, unspecified; E03.9 Hypothyroidism, unspecified; C61 Malignant neoplasm of prostate; E78.5 Hyperlipidemia, unspecified; I25.10 Atherosclerotic heart disease of native coronary artery without angina pectoris; F17.210 Nicotine dependence, cigarettes, uncomplicated; M79.651 Pain in right thigh; M79.652 Pain in left thigh; I48.91 Unspecified atrial fibrillation; E83.39 Other disorders of phosphorus metabolism; G47.00 Insomnia, unspecified; R53.1 Weakness; Z79.82 Long term (current) use of aspirin; Z79.51 Long term (current) use of inhaled steroids; Z79.899 Other long term (current) drug therapy; Z79.890 Hormone replacement therapy; Z90.79 Acquired absence of other genital organ(s)
CPT/HCPCS: 36415; 71045; 73552; 80048; 80053; 81001; 82550; 83605; 83735; 83880; 84100; 84439; 84443; 84481; 84484; 85025; 85379; 85610; 85730; 87040; 87086; 87633; 87811; 93005; 93306; 94640; 94668; 99285; 99406; A4216; J2405

== ENCOUNTER 2025-09-24 10:44 | Outpatient (RCR) | payer OTHER, SELFPAY ==
[2025-09-18 14:12] LABS: INR Fingerstick 1.3
[2025-09-24 10:53] LABS: INR Fingerstick 1.9
== END 2025-09-29 18:00 | disposition home or self-care (01) ==
LOC: LAB 10:44
PROVIDERS: PCP Family Medicine; Referring Provider Internal Medicine Cardiovascular Disease; Visit Provider Internal Medicine Cardiovascular Disease
DX: I48.92 Unspecified atrial flutter (principal); Z79.01 Long term (current) use of anticoagulants
CPT/HCPCS: 36416; 85610

== ENCOUNTER 2025-10-29 14:15 | Outpatient (RCR) | payer OTHER, SELFPAY ==
[2025-10-02 11:52] LABS: Prothrombin Time (Protime)PT. 22.0 SECONDS (11.7-14.9)
[2025-10-09 14:45] LABS: Prothrombin Time (Protime)PT. 25.0 SECONDS (11.7-14.9)
[2025-10-16 11:01] LABS: INR Fingerstick 2.2
[2025-10-22 12:14] LABS: INR Fingerstick 2.9
[2025-10-29 14:25] LABS: INR Fingerstick 2.9
== END 2025-10-29 18:00 | disposition home or self-care (01) ==
LOC: LAB 14:15
PROVIDERS: PCP Family Medicine; Referring Provider Internal Medicine Cardiovascular Disease; Visit Provider Internal Medicine Cardiovascular Disease
DX: I48.92 Unspecified atrial flutter (principal); Z79.01 Long term (current) use of anticoagulants
CPT/HCPCS: 36415; 36416; 85610